=== PATIENT | female | born 1955 | race Caucasian/White ===

== ENCOUNTER 2024-11-03 02:03 | Emergency (ER) | payer MEDICARE, SELFPAY ==
[2024-11-03] VITALS (7 sets, daily range): BP systolic 117–131; BP diastolic 68–83; PULSE 45–50; RESP 16–17; TEMP 36.3; O2SAT 95–100
--- NOTE | ~2024-11-03 | CT_ITS ---
Non-contrast Head CT History: Headache Technique: Axial non-contrast imaging of the brain was performed. Dose reduction technique was used on this scan by utilizing automated exposure control and iterative reconstruction technique. The dose -length product (DLP) was 681.00 mGy-cm. Findings: There is no evidence of intracranial hemorrhage, mass lesion, or acute infarct. Chronic in farct in the left cerebellum noted.. The ventricles and subarachnoid spaces are normal in size. The calvarium appears normal. The visualized paranasal sinuses and mastoid air cells are clear. Impression: No acute abnormality. Chronic left cerebellar infarct. Reviewed, dictated and finalized at [facility]. Impression: No acute abnormality. Chronic left cerebellar infarct.
--- NOTE | 2024-11-03 02:42 | ED.HA ---
HPI - Headache General Chief Complaint: Headache Stated Complaint: unspecified Time Seen by Provider: 11/03/24 02:10 Source: patient Mode of arrival: ambulatory Limitations: no limitations History of Present Illness HPI Narrative: this is a 69-year-old female with a history of previous stroke and Parkinson's disease presents with headache that she has had since 4:00 a.m. in the afternoon has tried [id number] Excedrin with minimal relief there is no neurological deficits patient is concerned about stroke. Patient has no nausea vomiting no blurry vision headache is throbbing left-sided with no chest pain no shortness of breath no fever chills no neck stiffness. MD elicited complaint: headache Onset (ago): hour(s) Onset description: gradually Location: left Severity: moderate Pain scale (0-10): 6 Quality & Timing: throbbing and similar to previous headaches Related Data Allergies Allergy/AdvReac Type Severity Reaction Status Date / Time No Known Allergies Allergy Verified 11/03/24 02:33 Review of Systems Review of Systems: All systems reviewed & are unremarkable except as noted in HPI and below PMFSH Past Medical History Medical History History of CVA (cerebrovascular accident) Parkinsons disease Exam Const: General: healthy appearing, no acute distress and alert Nutritional Appearance: well nourished Orientation/consciousness: patient oriented x3 Limitations: no limitations HENMT: Head: normal to inspection Eyes: Conjunctivae: conjunctivae normal Pupils: Equal, round and reactive pupils present EOM: EOMs intact bilaterally Direct Ophthalmoscopy: no photophobia Neck: Neck: normal visual inspection Chest: Chest palpation & inspection: normal inspection of the chest Resp: Effort & Inspection: normal respiratory effort Auscultation: clear to auscultation bilaterally Cardio: Rate: regular rate Rhythm: regular rhythm GI: GI Palp: Yes Soft to palpation Auscultation: normal bowel sounds : General: Yes bladder normal to palpation Back/Spine/Pelvis: Back: no CVA tenderness Skin: General skin exam: normal color Rashes: no rashes Wounds: no wounds Neuro: General: patient oriented x3, moves all extremities, no meningeal signs, no focal motor deficits and CN's II-XI intact bilaterally Cranial nerves: Yes Nystagmus not present Speech: normal speech Gait exam (Neuro): Normal gait present Extrem: General: normal to inspection and no clubbing, cyanosis or edema Course Course Emergency Course: patient with a left-sided throbbing headache started IV fluids and a dose of 2mg IV morphine blood work performed and reviewed, CT scan of the brain performed shows no acute intracranial abnormality. Vital Signs Vital signs: Vital Signs Temperature 36.3 C L 11/03/24 02:05 Pulse Rate 50 L 11/03/24 02:05 Respiratory Rate 16 11/03/24 02:05 Blood Pressure 131/83 11/03/24 02:05 Pulse Oximetry 100 11/03/24 02:05 Oxygen Delivery Room Air 11/03/24 02:05 Temperature 36.3 C L 11/03/24 02:05 Pulse Rate 50 L 11/03/24 02:05 Respiratory Rate 16 11/03/24 02:05 Blood Pressure 131/83 11/03/24 02:05 Pulse Oximetry 100 11/03/24 02:05 Oxygen Delivery Room Air 11/03/24 02:05 Critical Care Time Critical Care Time Critical Care Time: No Discharge Plan Discharge Clinical Impression: Headache Qualifiers: Headache type: other headache syndrome Qualified Code(s): G44.89 - Other headache syndrome Patient Disposition: Home Condition: Stable Instructions: Antibiotic Form, Acute Headache (ED) Additional Instructions: Advised patient to take medication as prescribed and to follow with her primary within the next 2 to 5 days for further evaluation and treatment. Patient Language: Libyan Follow-up/Referrals: UNKNOWN,DOCTOR [Primary Care Provider] -
--- OUTSIDE RECORDS SUMMARY | 2024-11-03 02:48 | XMS_ITS | Clinical Summary ---
Author Organization [facility] Address [address] [address] Care Team Providers Care Dry Kiln Worker Name Role Phone Bronson Juan MD Unavailable [phone] Mitchell Hooper MD Primary Care Provider [phone] Source Comments [facility],non-owned Affiliates and Associated Physician Practices is amultiple site organization consisting of ambulatory clinics and hospital sitesin [place], [place], [place] and [place]. This disclosure is being madepursuant to the Care Everywhere program and may not contain all information available regarding this patient. Last updated 18.[facility] [facility] Allergies Active Allergy Reactions Criticality Noted Date Comments Adhesive Sensitivity Other Medium 12/08/2021 Tears skin - only wants paper tape Atorvastatin Angioedema High 09/26/2021 Swelling of face, hands and feet Bacitracin Urticaria Medium 06/05/2021 Clarithromycin Nausea and/or Vomiting Low 07/04/2009 Contrast-Iodinated Agents For Ct/Other Nausea and/or Vomiting 12/19/2021 Gramicidin Unknown Low 06/05/2021 Latex Rash Medium 07/04/2009 Levofloxacin Itching Medium 06/05/2021 Neomycin Unknown 12/22/2017 Nickel Urticaria Medium 06/05/2021 Polymyxin B Rash High 06/05/2021 Pramoxine Urticaria Medium 06/05/2021 Rosuvastatin Rash Medium 12/08/2021 Turmeric Urticaria Medium 09/12/2020 Yellow Dye Urticaria Medium 06/05/2021 Medications * Be aware that medications may not be up to date on this document. Alwaysverify current medications with the patient. ALPRAZolam (XANAX) 1 MG tablet Take 1 (one) tablet by mouth 3 times daily as needed for Anxiety Active oxybutynin (DITROPAN) 5 MG tablet Take 1 (one) tablet by mouth once daily Active cyclobenzaprine (FLEXERIL) 10 MG tablet Take 1 (one) tablet by mouth 3 times daily as needed For muscle spasms. 1 Active DULoxetine (CYMBALTA) 60 MG capsule Take 1 (one) capsule by mouth 2 times daily 2 Active hydroxychloroqu ine (PLAQUENIL) 200 MG tablet 1 (one) tablet once daily 2 Active meclizine (ANTIVERT) 25 MG tablet Take 1 (one) tablet by mouth 3 times daily as needed for Dizziness 2 Active montelukast (SINGULAIR) 10 MG tablet TAKE 1 TABLET BY MOUTH IN THE EVENING 1 Active topiramate (TOPAMAX) 100 MG tablet at bedtime 2 Active clopidogrel (PLAVIX) 75 MG tablet Take 1 (one) tablet by mouth once daily 30 tablet 1 2 Active prochlorperazin e (COMPAZINE) 10 MG tablet Take 1 (one) tablet by mouth every 8 hours as needed for Nausea/Vomitin g Active carbidopa-levod opa (Sinemet) 25-100 MG tablet Take 1 (one) tablet by mouth once daily 2 Active folic acid (Folvite) 1 MG tablet Take 1 (one) tablet by mouth once daily 90 tablet 1 2 Active levothyroxine (Synthroid) 100 MCG tablet TAKE 1 TABLET BY MOUTH EVERY DAY 90 tablet 1 2 Active triamcinolone acetonide (Kenalog) 0.1 % cream Apply to affected area 2 times daily 453.6 g 2 Active propranolol ER 24hr (Inderal LA) 60 MG capsule 3 Active dicyclomine (Bentyl) 10 MG capsule Take 1 (one) capsule by mouth 2 times daily as needed 30 capsule 3 Active fluticasone propionate (Flonase) 50 MCG/ACT nasal sprayIndication s:Allergic Rhinitis [place] 2 (two) sprays into each nostril once daily Reasons: Allergic Rhinitis 16 g 2 4 Active cetirizine (ZyrTEC) 10 MG tabletIndicatio ns:Allergic Rhinitis Take 1 (one) tablet by mouth once daily Reasons: Allergic Rhinitis 90 tablet 3 4 Active cholestyramine (Questran) 4 g packet Take 1 (one) packet by mouth 2 times daily 180 packet 3 4 Active Active Problems Problem Noted Date Diagnosed Date Chronic pansinusitis 06/12/2024 Anxiety and depression 06/12/2024 Discoid lupus 06/12/2024 History of MRSA infection of lungs 06/12/2024 Overview (06/12/2024): pneumonia in 2017 Hypertrophy of nasal turbinates 06/12/2024 Nasal septal deviation 06/12/2024 PONV (postoperative nausea and vomiting) 025 Osteoarthritis of right shoulder 06/12/2024 Facial pain, atypical 02/21/2024 Stage 3a chronic kidney disease 09/27/2023 Hypertriglyceridemia 09/27/2023 Mild episode of recurrent major depressive disor mouna 09/27/2023 Eczema 09/27/2023 Grade II hemorrhoids 10/20/2022 Chronic migraine without aur a without status migrainosus, not intractable 08/12/2022 Chronic, continuous use of opioids 05/08/2022 Aortic calcification 01/26/2022 Overview (01/26/2022): Per EKG read by Celso Vick MD on 08/21/2021 Bilateral leg edema 01/13/2022 S/P closure of ileostomy 01/13/2022 Chronic nonintractable headache 12/08/2021 Migraine without status migrainosus, not intract able 12/08/2021 Hypothyroidism 12/08/2021 Mixed hyperlipidemia 12/08/2021 Fibromyalgia 12/08/2021 Sjogren's syndrome 12/08/2021 Anxiety 12/08/2021 Allergic rhinitis 12/08/2021 Restless leg syndrome 12/08/2021 OAB (overactive bladder) 12/08/2021 Vertigo 12/08/2021 Chronic pain syndrome 12/08/2021 Mild anemia 12/08/2021 Fatigue 12/08/2021 History of CVA in adulthood 12/08/2021 History of septic shock 12/08/2021 History of 2019 novel coronavirus disease (COVID -19) 12/08/2021 History of ischemic bowel disease 12/08/2021 S/P colectomy 12/08/2021 Systemic lupus erythematosus 12/08/2021 Abnormal EKG 12/08/2021 Chronic bacterial conjunctivitis of right eye Urticaria 11/27/2020 Dysphagia 10/05/2020 S/P reverse total shoulder arthroplasty, right 0 09/26/2020 Rotator cuff tear arthropathy of right shoulder 07/18/2020 Postmenopausal 07/07/2020 Visit for screening mammogram 07/07/2020 Complete rupture of rotator cuff 06/06/2020 Nasal congestion 06/06/2020 Blepharitis of both eyes 07/12/2019 Current moderate episode of major depressive disorder without prior episode 07/12/2019 Pelvic relaxation due to vaginal prolapse 2018 Screening for breast cancer 12/15/2018 Psoriasis 02/25/2018 Drug-induced constipation 01/17/2018 Cobalamin deficiency 02/12/2017 Multinodular goiter 02/12/2017 Closed fracture of sternum 07/25/2015 Overview (06/12/2024): Closed fracture of sternum with routine healing, unspecified fracture of sternum, subsequent encounter Fibrositis 05/08/2014 Overview (06/12/2024): Fibromyalgia Angioedema 07/19/2013 Overview (06/12/2024): Angioedema Nonrheumatic mitral valve regurgitation 12/29/19 Overview (06/12/2024): Mild MR by 2012 echo Cervical disc disorder with radiculopathy 2012 Overview (06/12/2024): Cervical disc disorder with radiculopathy Osteoarthritis of cervical spine 04/05/2012 Osteoporosis 04/05/2012 Intervertebral disc disorder of cervical region with myelopathy 03/07/2012 Overview (06/12/2024): Intervertebral cervical disc disorder with myelopa Depression, major 07/04/2009 GERD (gastroesophageal reflux disease) 0 Pulmonary emphysema 07/04/2009 Overview (06/12/2024): Obstructive chronic bronchitis with exacerbation Tobacco use disorder 07/04/2009 Ulcer, skin, chronic 07/04/2009 Urinary incontinence 07/04/2009 Resolved Problems Problem Noted Date Diagnosed Date Resolved Date Aortic ectasia 01/26/2022 09/27/2023 Overview (01/26/2022): Per Sathya Land MD on 12/05/2021 Ileus 01/26/2022 03/30/2023 Overview (01/26/2022): Per XR read by radiologist Cr Tineo on 05/25/2021 Syncope 12/08/2021 03/30/2023 Head injury 12/08/2021 03/30/2023 Stage 3b chronic kidney disease 12/08/2021 09/27/2023 Hyperglycemia 12/08/2021 06/12/[address] 12/08/2021 HTN (hypertension) 10/09/2021 2 Elevated troponin 08/20/2021 12/08/2021 CVA (cerebral vascular accident) 08/20/2021 12/08/2021 Cecal volvulus 05/19/2021 01/13/2022 Lactic acidosis 05/19/2021 12/08/2021 Ischemia, bowel 05/19/2021 12/08/2021 Unresponsive 05/19/2021 12/08/2021 ARNOL (acute kidney injury) 05/19/2021 Septic shock 05/19/2021 12/08/2021 Hypotension 05/19/2021 12/08/2021 Encounters Date Type Department Care Team Description 09/06/2024 Refill [facility] - Internal Medicine [address] [place] [address] Mitchell Hooper MD Refill Request 08/31/2024 Patient Outreach [facility] - Care Coordination [address] [place] [phone] Yanet Crowe Outreach Preventive Care 08/30/2024 Patient Outreach [facility] - Care Coordination [address] [place] [phone] Yanet Crowe [facility] Preventive Care from Last 3 Months Immunizations Immunization Administration Dates Next Due INFLUENZA VACCINE, TRIV. (AF LURIA, FLUZONE TRIVALENT; 6MO+) (IIV3) 03/15/2007 Covid Moderna primary monova lent 12+ yr 0.5mL 08/07/2020,08/03/2020 FLU VACCINE QUAD IIV4 SPLIT 0.25 ML IM 02/20/2016 FLU VACCINE TRI IIV3 SPLIT I M (FLUVIRIN) 03/28/2013 HEP A VACCINE, ADULT 11/25/2007,08/05/2005 INFLUENZA VACCINE 02/27/2022,02/19/2021,03/06/20 INFLUENZA VACCINE, HIGH-DOSE , QUADR. (FLUZONE HIGH-DOSE QUADRIVALENT; 65Y+), 0.7 ML (HD-IIV4) 02/17/2024,01/18/2023,02/12/2022,2020 INFLUENZA VACCINE, HIGH-DOSE , TRIV. (FLUZONE HIGH-DOSE TRIVALENT; 65Y+) (HD-IIV3) 02/19/2021 INFLUENZA VACCINE, QUADR. (A FLURIA, FLUZONE QUADRIVALENT; 6MO+) (IIV4) 02/29/2012,03/31/2010 INFLUENZA VACCINE, QUADR. (F LUZONE; FLULAVAL; FLUARIX; AFLURIA QUADRIVALENT; 6MO+), 0.5 ML (IIV4) 01/18/2019,01/17/2018,02/01/2017 INFLUENZA VACCINE, RECOM-DUFF, TRIV. (FLUBLOCK TRIVALENT; 18Y+) (RIV3) 02/05/2015,03/05/2014 PNEUMOCOCCAL PCV20 CONJ VAC IM 01/18/2023 PNEUMOCOCCAL PPSV23 09/01/2016, 5,02/18/2011,2007,03/15/2007,03/03/2000 PNEUMOCOCCAL PPV VACCINE 02/19/2021 Pneumococcal Pcv13 Conj 09/01/2017,02/05/2015 TDAP (7yrs+) 04/23/2015,03/05/2008 Td (Adult), 2 Lf Tetanus Tox oid, Adsorbed, Pf 04/26/2008 Zoster Hzv Vacc Recombinant Inj Im 07/05/2020, Family History Medical History Relation Name Comments CAD (Coronary Artery Disease) Brother 74 CAD (Coronary Artery Disease) Father 71 heart attack age 70 Lupus Father 71 Other Father 71 raynauds diseas e CAD (Coronary Artery Disease) Mother 60 CVA Mother 60 age 60 Cancer - Breast Mother 60 Diabetes; unknown type Mother 60 Cancer Sister 1 63 Brain Cancer - Lung Sister 1 63 Diabetes; unknown type Sister 1 63 Arthritis - Rheumatoid Sister 2 65 CAD (Coronary Artery Disease) Sister 2 65 Cancer Sister 2 65 brain lung Relation Name Status Comments Brother 74 Father 71 Mother 60 Sister 1 63 Sister 2 65 Social History Tobacco Use Types Packs/Day Years Used Date Smoking Tobacco: Former Cigarettes Q uit: 07/25/2012 Smokeless Tobacco: Never Alcohol Use Standard Drinks/Week Comments Not Currently 0 (1 standard drink = 0.6 oz pur e alcohol) rarely AUDIT-C Answer Date Recorded Q1: How often do you have a drink containing alcohol? Never 08/20/2021 Q2: How many drinks containi ng alcohol do you have on a typical day when you are drinking? Patient does not drink Q3: How often do you have si x or more drinks on one occasion? Never 08/20/2021 PHQ-2 Answer Date Recorded Patient Health Questionnaire-2 Score 0 09/27/2023 Hunger Vital Sign Answer Date Recorded Within the past 12 months, y ou worried that your food would run out before you got the money to buy more. Never true 12/23/19 22 Within the past 12 months, t he food you bought just didn't last and you didn't have money to get more. Never true 12/22/2021 Comments Unknown Sex and Gender Information Value Date Recorded Sex Assigned at Female 05/19/2021 11:51 PM MINES SAFETY ENGINEER Legal Sex Female 1:07 PM MINES SAFETY ENGINEER Gender Identity Female 05/19/2021 5:03 PM MINES SAFETY ENGINEER Sexual Orientation Straight 05/19/2021 11 :51 PM MINES SAFETY ENGINEER Occupation Industry Job Start Date Job End Date retired Not on file Not on file Not on file Last Filed Vital Signs Vital Sign Reading Time Taken Comments Blood Pressure 93/62 12/30/2023 1:27 PM CDT Pulse 57 12/30/2023 1:27 PM CDT Temperature 36.3 C (97.3 F) 07/01/2023 1:37 PM MINES SAFETY ENGINEER Respiratory Rate 16 03/27/2022 1:36 PM MINES SAFETY ENGINEER Oxygen Saturation 99% 09/27/2023 11:31 AM CDT Inhaled Oxygen Concentration - - Weight 59.9 kg (132 lb) 12/30/2023 1:27 PM CDT Height 160 cm (5' 3) 12/30/2023 1:27 PM CDT Body Mass Index 23.38 12/30/2023 1:27 PM CDT Plan of Treatment Health Maintenance Due Date Last Done Comments COLOGUARD (AGES 45-75) - COLON CA SCREENING 1954 CT COLONOGRAPHY - COLON CA SCREENING 1954 FIT - COLON CA SCREENING 1955 FLEX SIG - COLON CA SCREENING 1955 Respiratory Syncytial Virus (RSV) Vaccine Pt: or over 60 yrs (1 - Risk 60-74 years 1-dose series) 2014 COVID-19 VACCINE ( - 2023- season) 2023 09/03/2020, 08/07/2020, 08/03/2020 DEPRESSION SCREENING 04/26/2024 09/27/2023, 03/30/2023, 09/26/2021 MEDICARE AWV CALENDAR YEAR 2024 09/27/2023, 03/30/2023, 12/08/2021 INFLUENZA VACCINE (#1) 2024 , 01/18/2023, 02/27/2022, Additional history exists DTAP/TDAP/TD VACCINES (4 - Td or Tdap) 04/23/2025 04/23/2015, 04/26/2008, 03/05/2008 MAMMOGRAM 03/03/2026 03/03/2024, 11/2023, 07/13/2022, Additional history exists COLONOSCOPY - COLON CA SCREENING 09/24/2026 09/24/2021, 09/24/2021 Colorectal Cancer Screening 09/24/2026 LIPID TESTING 09/26/2028 09/27/2023, 08/2022, 12/15/2021, Additional history exists COLON MONITORING 09/25/2031 09/24/2021, 09/24/2021 ZOSTER VACCINE Completed 07/05/2020, 02/29/2020 BONE DENSITY TESTING Completed 08/28/2020 HEPATITIS C SCREENING Completed 12/15/2021 PNEUMOCOCCAL VACCINE 50+ Completed 023, 02/19/2021, 09/01/2017, Additional history exists HEPATITIS B VACCINE Aged Out No longe r eligible based on patient's age to complete this topic HIB VACCINE Aged Out No longer eligi ble based on patient's age to complete this topic HPV VACCINE Aged Out No longer eligi ble based on patient's age to complete this topic MENINGOCOCCAL (Group B) VACCINE SHARED DECISION-MAKING Aged Out No longer eligible based on patient's age to complete this topic MENINGOCOCCAL GROUPS A/C/Y/W VACCINE Aged Out No longer eligible based on patient's age to complete this topic Procedures Procedure Name Priority Date/Time Associated Diagnosis Comments LIPID PROFILE Routine 09/27/2023 12:40 PM CDT Mixed hyperlipidemia HEPATITIS C ANTIBODY W RFLX PCR Routine 12/15/2021 3:11 PM CDT Encounter for hepatitis C screening test for low risk patient COLONOSCOPY Routine 09/24/2021 from Last 3 Months or Most Recently Relevant to Health Maintenance Results * LIPID PROFILE (09/27/2023 12:40 PM CDT) Cholesterol 151 <200 mg/dL [facility] ACCOUNT BILL Triglycerides 140 <150 mg/dL [facility] ACCOUNT BILL HDL Cholesterol 65 >40 mg/dL [facility] ACCOUNT BILL VLDL Calculated 28 <=30 mg/dL [facility] ACCOUNT BILL LDL Calculated 58 <130 mg/dL [facility] ACCOUNT BILL Blood BLOOD SPECIMEN / Unknown 09/27/2023 12:40 PM CDT 09/27/2023 Narrative Resulting Agency Comment Lab Testing performed at: [facility] [address] [id number] Mitchell Hooper MD LAB - CHEMISTRY ORDERABLES Final Result [facility] ACCOUNT BILL [address] [place] [address] * HEPATITIS C ANTIBODY W RFLX PCR (12/15/2021 3:11 PM CDT) [facility] Signature Hepatitis C Antibody <0.1 0.0 - 0.9 s/co ratio [facility] ACCOUNT BILL Blood BLOOD SPECIMEN / Unknown 12/15/2021 3:11 PM CDT 12/15/2021 Narrative Resulting Agency Comment Lab Testing performed at: [facility] [address] [id number] Mitchell Hooper MD LAB - CHEMISTRY ORDERABLES Final Result Performing Organization Address [facility] de Phone Number [facility] ACCOUNT BILL [address] [place] [address] * COLONOSCOPY (09/24/2021) Historical Provider SCANNING ONLY Final Res ult from Last 3 Months or Most Recently Relevant to Health Maintenance Insurance [facility] MANAGED MEDICARE ADV [facility] MANAGED MEDICARE ADV Advance Directives * Full Code (Latest Code Status on File) Date Activated Date Inactivated Comments 12/19/2021 10:43 AM 12/23/2021 11:44 AM * Full Code Date Activated Date Inactivated Comments 08/20/2021 7:08 PM 08/22/2021 6:35 PM * Full Code Date Activated Date Inactivated Comments 05/19/2021 7:29 PM 05/26/2021 12:48 PM Care Teams Dry Kiln Worker Relationship Specialty Start Date End Date Mitchell Hooper MD [address] [place] [phone] PCP - General Internal Medicine 03/30/23 Bronson Juan MD [address] [place] [place] [phone] Surgeon Colon and Rectal Surgery 03/24/22
--- OUTSIDE RECORDS SUMMARY | 2024-11-03 02:48 | XMS_ITS | Encounter Summary ---
Author Organization [facility] Address [address] [place] [address] Care Team Providers Care Records Administrator Name Role Phone Michael Ventura MD Primary Care Provider Vera Omari Restoration DO Unavailable [phone] Michael Carrillo MD Primary Care Provider [phone] Michael Ventura MD Primary Care Provider [phone] Michael Carrillo MD Primary Care Provider [phone] Michael Ventura MD Primary Care Provider [phone] Michael Carrillo MD Primary Care Provider [phone] Alcon Guardado RN Unavailable +[phone] Sabina Meredith MA Unavailable [phone] Michael Carrillo MD Primary Care Provider [phone] Colleen Connolly RN Unavailable +[phone] Encounter Details Date Type Department Care Team (Late st Contact Info) Description 06/20/2020 Telephone [facility] [address] [place] [address] Jyothi Gray, RT Social History Tobacco Use Types Packs/Day Years Used Date Smoking Tobacco: Former Cigarettes 1.5 45 1 968 - 2012 Smokeless Tobacco: Never Alcohol Use Standard Drinks/Week Comments No 0 (1 standard drink = 0.6 oz pur e alcohol) PHQ-2 Answer Date Recorded PHQ-2 Total Score (If total score is 3 or more points, staff should administer the PHQ-9) 1 06/20/2020 Comments No Sex and Gender Information Value Date Recorded Sex Assigned at Not on file Legal Sex Female 10:27 PM LIBRARY CIRCULATION ASSISTANT Gender Identity Female 12/13/2018 8:50 AM CDT Sexual Orientation Straight 12/13/2018 8: 50 AM CDT Occupation Industry Job Start Date Job End Date Retired Not on file Not on file Not on file documented as of this encounter Plan of Treatment Not on file documented as of this encounter Goals Goal Patient Goal Type Associated Problems Recent Progress Patient-Stated? Author CCM Chronic Pain Care Plan Chronic Care Management No Mague Oconnor, RN Note: Problem: Chronic Pain Goals: 1. Minimize further functional decline 2. Maximize quality of life 3. Control pain Strategies: - Activity/exercise program recommendation - Conservative stepwise pain medicine strategy with multi-disciplinary approach - Recommend healthy lifestyle strategies and compensatory methods as needed Reduce the likelihood of falling Lifestyle No Mague Oconnor, RN Note: Below are four things you can do to prevent falls: 1. Begin an exercise program to improve your leg strength & balance 2. Ask your doctor or pharmacist to review your medicines 3. Get annual eye check-ups & update your eyeglasses 4. Make your home safer by: Removing clutter & tripping hazards Putting railings on all stairs & adding grab bars in the bathroom Having good lighting, especially on stairs Contact your local community or senior [place] for information on exercise, fall prevention programs, or options for improving home safety. 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 06/24/2021 4:00 AM LIBRARY CIRCULATION ASSISTANT documented as of this encounter Care Teams Records Administrator Relationship Specialty Start Date End Date Michael Ventura MD PCP - General 07/24/16 01/13/21 Michael Carrillo MD PCP - General Internal Medicine 01/14/21 02/23/21 Michael Ventura MD PCP - General 02/24/21 02/26/21 Michael Carrillo MD PCP - General Internal Medicine 02/27/21 03/24/21 Michael Ventura MD PCP - General 03/25/21 04/06/21 Michael Carrillo MD PCP - General Internal Medicine 04/07/21 10/01/21 Michael Carrillo MD PCP - General Internal Medicine 10/02/21 Omari Vera DO Consulting Physician Orthopedic Surgery 09/12/20 Alcon Guardado RN [address] [place] [address] [address] [place] [address] Convention Services Director 06/02/21 08/07/21 Sabina Meredith MA [address] [place] [address] [address] [place], [place] [phone] ACO Care Cut Roll Machine Offbearer 08/26/21 09/03/21 Colleen Connolly RN [address] [place] [address] [address] [place], [place] [id number] Convention Services Director 12/24/21 01/01/22 documented as of this encounter
--- OUTSIDE RECORDS SUMMARY | 2024-11-03 02:48 | XMS_ITS | Encounter Summary ---
Author Organization [facility] Address [address] [place] [address] Care Team Providers Care Street Inspector Name Role Phone Michael Ventura MD Primary Care Provider [phone] Omari Veraian DO Unavailable [phone] Michael Carrillo MD Primary Care Provider [phone] Michael Ventura MD Primary Care Provider [phone] Michael Carrillo MD Primary Care Provider [phone] Michael Ventura MD Primary Care Provider [phone] Michael Carrillo MD Primary Care Provider [phone] Alcon Guardado RN Unavailable +[phone] Sabina Meredith MA Unavailable [phone] Michael Carrillo MD Primary Care Provider [phone] Colleen Connolly RN Unavailable +[phone] Encounter Details Date Type Department Care Team (Late st Contact Info) Description 08/02/2020 Telephone [facility] [address] [place] [address] Transcribed Order, Provider Social History Tobacco Use Types Packs/Day Years [...] on file Legal 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 06/24/2021 4:00 AM SOIL EXPERT documented as of this encounter Care Teams Street Inspector Relationship Specialty Start Date End Date Michael [...] Physician Orthopedic Surgery 09/12/20 Alcon Guardado RN [address] [place] [address] [address] [place] [address] Drainman 06/02/21 08/07/21 Sabina Meredith MA [address] [facility] [address] [place], [place] [phone] ACO Care Superintendent Distribution 08/26/21 09/03/21 Colleen Connolly RN [address] [place] [address] [address] [place] [address] Drainman 12/24/21 01/01/22 documented as of this encounter
--- OUTSIDE RECORDS SUMMARY | 2024-11-03 02:48 | XMS_ITS | Encounter Summary ---
Author Organization [facility] Address [address] [place] [address] Care Team Providers Care [employer] Librarian Name Role Phone Michael Ventura MD Primary Care Provider Vera Omari [facility] DO Unavailable [phone] Michael Carrillo MD Primary Care Provider [phone] Michael Ventura MD Primary Care Provider [phone] Michael Carrillo MD Primary Care Provider [phone] Michael Ventura MD Primary Care Provider [phone] Michael Carrillo MD Primary Care Provider [phone] Alcon Guardado RN Unavailable [phone] Sabina Meredith MA Unavailable [phone] Michael Carrillo MD Primary Care Provider [phone] Colleen Connolly RN Unavailable [phone] Encounter Details Date Type Department Care Team (Late st Contact Info) Description 08/27/2020 Telephone [facility] [address] [place] [address] [address] [place] [id number] Jyothi Gray, RT Social History Tobacco Use Types Packs/Day Years Used Date Smoking Tobacco: Former Cigarettes 1.5 45 7 968 - 2013 Smokeless Tobacco: Never Alcohol Use Standard Drinks/Week Comments No 0 (1 standard drink = 0.6 oz pur e alcohol) AUDIT-C Answer Date Recorded Q1: How often do you have a drink containing alc ohol? 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 Author CCM Chronic Pain Care Plan Chronic Care Management No Mague Oconnor RN Note: Problem: Chronic Pain Goals: 1. [...] stairs Contact your local community or senior center for information on exercise, fall prevention programs, or options for improving home safety. 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 06/24/2021 4:00 AM TELEGRAPH OFFICE ROUTE AIDE documented as of this encounter Care Teams [employer] Librarian Relationship Specialty Start Date End Date Michael [...] Physician Orthopedic Surgery 09/12/20 Alcon Guardado RN [address] [facility] [address] [place], [place] [phone] Cdl Driver 06/02/21 08/07/21 Sabina Meredith MA [address] [facility] [address] [place], [place] [phone] ACO Care Hand Brush Filler 08/26/21 09/03/21 Colleen Connolly RN [address] [place] [address] [address] [place] [id number] Cdl Driver 12/24/21 01/01/22 documented as of this encounter
--- OUTSIDE RECORDS SUMMARY | 2024-11-03 02:48 | XMS_ITS | Encounter Summary ---
Author Organization [facility] Address [address] [place] [address] Care Team Providers Care Spool Maker Name Role Phone Michael Ventura MD Primary Care Provider [phone] Vera Omari [facility] DO Unavailable [phone] Michael Carrillo MD Primary Care Provider [phone] Michael Ventura MD Primary Care Provider [phone] Michael Carrillo MD Primary Care Provider [phone] Michael Ventura MD Primary Care Provider [phone] Michael Carrillo MD Primary Care Provider [phone] Alcon Guardado RN Unavailable +[phone] Sabina Meredith MA Unavailable [phone] Michael Carrillo MD Primary Care Provider [phone] Colleen Connolly RN Unavailable +[phone] Encounter Details Date Type Department Care Team (Late st Contact Info) Description 07/18/2020 Telephone [facility] [address] [place] [address] [address] [place] [address] Jyothi Gray, RT Social History Tobacco Use Types Packs/Day Years Used Date Smoking Tobacco: Former Cigarettes 1.5 45 8 968 - 2013 Smokeless Tobacco: Never Alcohol [...] on file Legal 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 Female 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 Gender Identity Female 12/13/2018 8:50 AM CDT [...] Time MRSA 08/01/2016 08/29/2020 06/24/2021 4:00 AM FOREST FIRE PREVENTION MANAGER documented as of this encounter Care Teams Spool Maker Relationship Specialty Start Date End Date Michael Ventura MD PCP - General 3/31/17 9/20/21 Michael Carrillo MD PCP - General Internal [...] Physician Orthopedic Surgery 09/12/20 Alcon Guardado RN [address] [place] [address] [address] [place] [address] Manager Real Estate 06/02/21 08/07/21 Sabina Meredith MA [address] [facility] [address] [place], [place] [phone] ACO Care Toolmaker 08/26/21 09/03/21 Colleen Connolly RN [address] [place] [address] [address] [place], [place] [phone] Manager Real Estate 12/24/21 01/01/22 documented as of this encounter
--- OUTSIDE RECORDS SUMMARY | 2024-11-03 02:49 | XMS_ITS | Referral Summary ---
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 Name Role Phone Omari Vera DO Unavailable Michael Carrillo MD Primary Care Provider Encounters Date Type Department Care Team Description 09/27/2024 Orders Only [facility] [address] [place] [address] [address] [place] [address] Michael Carrillo MD 2024 Orders Only [facility] [address] [place] [address] [address] [place] [address] Michael Carrillo MD Night muscle spasms from Last 3 Months Allergies Active Allergy Reactions Criticality Noted Date Comments Adhesive Tape-Silicones Hives Medium Tears skin - only wants paper tape Bacitracin Hives Medium Clarithromycin Nausea And Vomiting Low 07/04/2009 Gramicidin D Unknown Low Iodinated Contrast Media Nausea only Low Latex Rash Medium 07/04/2009 Latex, Natural Rubber Hives Medium 01/18/2018 Levofloxacin Itching Medium Neomycin Blisters High 12/22/2017 Bejnxdzy-Hzhsxcikao-Gbqsg yxin Blisters High 03/16/2022 Nickel Hives Medium Polymyxin B Blisters High Pramoxine Hives Medium Rosuvastatin Rash Medium 12/08/2021 Turmeric Hives Medium 09/12/2020 Yellow Dye Hives Medium Medications oxyCODONE (ROXICODONE) 30 mg immediate release tablet Take 1 tablet (30 mg total) by mouth 4 (four) times a day as needed for pain 03/07/20 21 Active prochlorperazin e (COMPAZINE) 10 mg tablet Take 1 tablet (10 mg total) by mouth every 8 (eight) hours as needed for nausea or vomiting 180 tablet 3 04/28/[address] (CYMBALTA) 60 mg capsule Take 1 capsule (60 mg total) by mouth 2 (two) times a day 180 capsule 3 11/23/19 24 Active hydroxychloroqu ine (PLAQUENIL) 200 mg tablet TAKE 1 TABLET BY MOUTH TWICE DAILY 180 tablet 3 03/22/[address] (PROTONIX) 40 mg EC tablet TAKE 1 TABLET BY MOUTH DAILY 90 tablet 3 04/04/20 24 Active cholestyramine (QUESTRAN) 4 gram packet DISSOLVE & TAKE 1 POWDER BY MOUTH TWICE DAILY Active SSD 1 % cream APPLY CREAM TO AFFECTED AREA TWICE DAILY 03/22/20 24 Active clopidogreL (PLAVIX) 75 mg tablet Take 1 tablet (75 mg total) by mouth daily 100 tablet 1 05/12/19 25 Active folic acid (FOLVITE) 1 mg tabletIndicatio ns:Low folic acid Take 1 tablet (1,000 mcg total) by mouth daily 100 tablet 1 05/26/19 25 Active carbidopa-levod opa (SINEMET) 25-100 mg per tablet Take 1 tablet by mouth once daily 180 tablet 05/26/19 25 Active montelukast (SINGULAIR) 10 mg tabletIndicatio ns:Chronic pansinusitis,Al lergy, subsequent encounter TAKE 1 TABLET BY MOUTH IN THE EVENING 90 tablet 3 06/29/19 25 Active ezetimibe (ZETIA) 10 mg tablet Take 1 tablet by mouth once daily 100 tablet 1 07/08/19 25 Active oxyBUTYnin (DITROPAN) 5 mg tablet TAKE 1 TABLET BY MOUTH TWICE DAILY 180 tablet 3 07/11/19 25 Active propranolol LA (INDERAL LA) 60 mg 24 hr capsuleIndicati ons:Chronic migraine without aura without status migrainosus, not intractable Take 1 capsule by mouth once daily 30 capsule 1 07/25/19 25 Active levothyroxine (SYNTHROID) 50 mcg tablet TAKE 2 TABLETS BY MOUTH ONCE DAILY IN THE MORNING BEFORE BREAKFAST 360 tablet 08/05/19 25 Active cyclobenzaprine (FLEXERIL) 10 mg tabletIndicatio ns:Night muscle spasms Take 1 tablet (10 mg total) by mouth 3 (three) times a day as needed for muscle spasms for muscle spasms 270 tablet 08/26/19 25 Active topiramate (TOPAMAX) 100 mg tabletIndicatio ns:Persistent migraine aura with cerebral infarction and status migrainosus, not intractable (HCC) TAKE 1 TABLET BY MOUTH EVERY NIGHT 100 tablet 09/09/19 25 Active dextroamphetami ne-amphetamine (ADDERALL) 20 mg tablet Take 0.5 tablets (10 mg total) by mouth daily 15 tablet 09/13/19 25 Active ALPRAZolam (XANAX) 1 mg tablet Take 1 tablet (1 mg total) by mouth 3 (three) times a day as needed for anxiety 270 tablet 09/28/19 25 Active triamcinolone (KENALOG) 0.1 % ointmentIndicat ions:Rash APPLY OINTMENT TOPICALLY TO AFFECTED AREA TWICE DAILY NEEDED FOR RASH 454 g 10/15/19 25 Active triamcinolone (KENALOG) 0.1 % ointmentIndicat ions:Rash Apply topically 2 (two) times a day as needed for rash From 07/29/2022 until 08/28/2022 454 g 1 08/23/19 25 025 Discontinued Active Problems Problem Noted Date Diagnosed Date Acute cystitis without hematuria 06/05/2024 Mass of upper inner quadrant of left breast 03/26 Assessment & Plan (04/10/2024 2:39 PM LEG BREAKER): Recommend proceeding with left breast ultrasound. Differential diagnosis hematoma, lipoma, breast cancer. Facial pain, atypical 02/21/2024 Aortic calcification 02/17/2024 Assessment & Plan (02/17/2024 12:31 PM CDT): Continue risk factor modification with control hypertension, ezetimibe H/O colectomy 11/15/2023 Mild episode of recurrent major depressive disor mouna 09/27/2023 Stage 3a chronic kidney disease 09/27/2023 Eczema 09/27/2023 Hypertriglyceridemia 09/27/2023 Grade II hemorrhoids 10/20/2022 Assessment & Plan (10/20/2022 3:17 PM CDT): Recommend hydrocortisone suppositories p.r.n.. Recommend Sitz baths. Amor Self also recommended. Follow-up with colorectal surgeon next month Chronic migraine without aur a without status migrainosus, not intractable 08/12/2022 Assessment & Plan (05/25/2023 2:30 PM LEG BREAKER): Christen has a longstanding headaches and is still reporting a daily headache. Her headache waxes and wanes in severity throughout the day and will usually develop migrainous associated symptoms with her more severe headaches. She has struggled with rebound headaches in the past. Preventatively, the patient currently takes Topamax, duloxetine, and propranolol. She has failed therapy with amitriptyline, nortriptyline, and previous botox injections. Acutely, the patient will take rpfy-uyj-kvlxtie medications which can sometimes help. She notes samples of Nurtec given to her at her last visit worked well. She has used sumatriptan nasal spray in the past, however due to history of stroke and cardiovascular risk factors triptans are contraindicated. Patient's specific migraine risk factors/triggers include family history, disrupted sleep pattern, stress, and depression/anxiety. Plan: Continue Topamax, duloxetine, and propranolol for migraine prevention. Will submit for botox approval. Will try Nurtec and Zavzpret nasal spray for acute headache treatment. Discussed avoidance of hwev-erw-kaisfrf analgesic medications to decrease rebound headaches. Encouraged adequate water intake, regular exercise, well-balanced diet, and limiting caffeine. Will schedule appointment once Botox has been approved. Assessment & Plan (08/12/2022 2:41 PM CDT): Christen is seen today for evaluation of longstanding headaches that have recently increased in frequency. She reports having daily headaches the last 2-3 months. Her headache waxes and wanes in severity throughout the day and can be described as dull/aching or sharp and tight pain with occasional associated symptoms of photophobia, phonophobia, and nausea. Preventatively, the patient tells me she has tried amitriptyline, nortriptyline, and Botox injections at one point. She only completed 3 rounds of Botox injections. For acute headache control, the patient has been taking Excedrin migraine every 6 hours. She historically used sumatriptan nasal spray, however due to history of stroke and cardiovascular risk factors triptans are contraindicated. At today's visit we discussed the patient's specific migraine risk factors/triggers including family history, poor sleep pattern, recent increase in stress, and depression/anxiety. Plan: 1. Headache diary 2. MRI of brain to rule out structural or vascular abnormalities due to recent change in frequency of headaches. 3. Prednisone taper to break current rebound headache pattern. Advised cessation of zycc-emz-cpsqvjf analgesic medication. 3. Preventative: Trial propranolol 60 mg LA daily. Consider retrying nortriptyline, CGRP injectables, or Botox if unsuccessful. 4. Acute therapy: The patient was given samples Nurtec and Ubrelvy at today's visit. She is to contact the office if she wishes to pursue a prescription in either therapy. 5. Limit caffeine intake 6. Encouraged regular exercise and well-balanced diet 7. Encouraged adequate water intake 8. Follow up 6-8 weeks. At today s visit migraine education was performed. We discussed avoidance of migraine triggers and non-medicinal strategies for preventing migraines. Topics of discussion included improved sleep hygiene, healthy diet, and stress reduction techniques. We also discussed the importance of avoiding medication overuse, as this can promote analgesic rebound headache. Chronic, continuous use of opioids 05/08/2022 Assessment & Plan (08/06/2022 12:57 PM CDT): High-dose opioids per pain management Assessment & Plan (05/08/2022 9:27 AM LEG BREAKER): Follows with outside pain management physician who prescribes oxycodone 30 mg Q 4 as well as MSER 15 mg b.i.d. p.r.n.. She reportedly does not take the morphine very frequently but does pick it up from the pharmacy so she has quite a bit at home. I have encouraged her to let her outside physician no she does not take it so that he can stop prescribing it. No changes today to chronic Xanax dosing but for long-term benefit would recommend transitioning to Valium with gradual taper. Additionally recommend seeing a psychiatrist. Yosvany wearing as a reasonable option as previously provided Anemia in stage 3a chronic kidney disease 2021 Assessment & Plan (02/17/2024 12:31 PM CDT): Repeat blood counts to monitor Assessment & Plan (02/11/2023 4:11 PM CDT): Repeat CBC today for monitoring Assessment & Plan (05/08/2022 9:24 AM LEG BREAKER): Likely complicated by some blood loss anemia in the setting of surgery this past fall. Repeat labs in the next few months. Aortic calcification 01/26/2022 Overview (05/31/2024): Per EKG read by Celso Vick MD on 08/21/2021 Bilateral leg edema 01/13/2022 Abnormal EKG 12/08/2021 Anxiety 12/08/2021 Fatigue 12/08/2021 History of 2019 novel coronavirus disease (COVID -19) 12/08/2021 Hyperglycemia 12/08/2021 OAB (overactive bladder) 12/08/2021 Vertigo 12/08/2021 Mild anemia 12/08/2021 S/P colectomy 12/08/2021 Mixed hyperlipidemia 12/08/2021 Chronic nonintractable headache 12/08/2021 Chronic pain syndrome 12/08/2021 Restless leg syndrome 12/08/2021 CKD (chronic kidney disease) stage 3, GFR 30-59 ml/min 10/03/2021 Assessment & Plan (02/17/2024 12:30 PM CDT): Follow-up with Dr. Cohen Assessment & Plan (02/11/2023 4:11 PM CDT): Follow-up with Dr. Cohen Assessment & Plan (05/08/2022 9:24 AM LEG BREAKER): Follow-up with Dr. Cohen with labs in June Chronic bacterial conjunctivitis of right eye Assessment & Plan (12/16/2020 8:20 PM CDT): A referral ophthalmology has been made. Urticaria 11/27/2020 Assessment & Plan (11/27/2020 6:29 PM CDT): Possible allergic reaction to erythromycin ophthalmic ointment. Discontinue ointment. Prednisone taper. Methylprednisolone 40 mg IM today. Thyroid nodule 10/05/2020 Assessment & Plan (10/05/2020 9:09 PM CDT): A thyroid ultrasound will be ordered for further evaluation. Dysphagia 10/05/2020 Assessment & Plan (10/05/2020 9:09 PM CDT): A modified barium swallow be ordered. Patient needs further evaluation. S/P reverse total shoulder arthroplasty, right 0 09/26/2020 Assessment & Plan (06/23/2022 11:41 AM LEG BREAKER): Treatment options were discussed. X-rays taken the office today show no obvious signs of loosening questionable radiolucency along the medial humeral component. The glenoid component appears to be well fixed. I recommended ESR CRP and three-phase bone scan to evaluate for loosening. Clinically her range of motion is well-preserved. Her incision looks excellent and well healed. She will follow up with me once her test results are available. Assessment & Plan (08/07/2021 3:04 PM CDT): Overall patient is doing well. Range of motion continues to improve. She has some days are more painful than others. Clinically her incisions clean dry and intact. She is recovering from emergency abdominal surgery that required a colectomy with ileostomy. She is going to follow up with her general surgeon next month. She did not wish to have ESR and CRP drawn at this time to evaluate for underlying cause of her right shoulder pain. She will message me through [employer] once she has recovered from her abdominal surgery and notify me how her shoulder pain is responding. Assessment & Plan (03/18/2021 3:57 PM LEG BREAKER): X-rays taken the office today compared to previous films performed in November 2020 show no change. There is no evidence of implant loosening or failure. Clinically she has acceptable range of motion. The rest that she was experiencing over the anterior shoulder and chest has completely resolved. Her incisions well healed without erythema. She does have some pain in her arm. I recommended she continue with home-based exercise. She will follow up with me when she is 1 year postoperatively Assessment & Plan (10/24/2020 10:05 AM CDT): Overall patient is doing very well. She is approximately 6 weeks status post right reverse shoulder replacement for rotator cuff tear arthropathy. She would benefit from continued outpatient therapy to improve her active range of motion. She will follow up with me in 6 weeks. X-ray right shoulder at that time. Rotator cuff tear arthropathy of right shoulder 07/18/2020 Assessment & Plan (07/18/2020 12:53 PM CDT): Treatment options were discussed. X-rays were reviewed with the patient which show decreased acromial humeral interval as well as sclerosis consistent with multiple anchors placed into the greater tuberosity. She has weakness and pain with isolation of the supraspinatus. She has function limiting pain that affects her ability to get dressed open a car door and take care of her family. We discussed operative and non operative treatment options including corticosteroid injections and physical therapy. She reports she did not have symptomatic relief with previous cortisone injections and did not wish to have an injection. She elected to proceed with a right reverse shoulder replacement. We discussed the risks of surgery including persistent pain decreased range of motion infection weakness and the need for future surgery. Informed consent was obtained. Visit for screening mammogram 07/07/2020 Assessment & Plan (07/07/2020 5:30 PM CDT): A mammogram was ordered Postmenopausal 07/07/2020 Assessment & Plan (07/07/2020 5:32 PM CDT): A DEXA will be ordered BMI 23.0-23.9, adult 06/06/2020 Assessment & Plan (04/10/2024 2:37 PM LEG BREAKER): BMI Follow-up includes: nutrition counseling, exercise counseling, and education provided. Assessment & Plan (02/17/2024 9:52 AM CDT): BMI Follow-up includes: nutrition counseling, exercise counseling, and education provided. Assessment & Plan (12/30/2023 8:59 AM CDT): BMI Follow-up includes: nutrition counseling, exercise counseling, and education provided. Assessment & Plan (02/11/2023 10:51 AM CDT): BMI Follow-up includes: nutrition counseling, exercise counseling, and education provided. Assessment & Plan (10/20/2022 10:14 AM CDT): BMI Follow-up includes: nutrition counseling, exercise counseling, and education provided. Assessment & Plan (08/06/2022 11:01 AM CDT): BMI Follow-up includes: nutrition counseling, exercise counseling and education provided. Assessment & Plan (05/08/2022 8:54 AM LEG BREAKER): BMI Follow-up includes: nutrition counseling, exercise counseling and education provided. Assessment & Plan (07/01/2021 11:38 AM LEG BREAKER): BMI Follow-up includes: nutrition counseling, exercise counseling and education provided. Assessment & Plan (06/03/2021 2:43 PM LEG BREAKER): BMI Follow-up includes: nutrition counseling, exercise counseling and education provided. Assessment & Plan (11/27/2020 2:06 PM CDT): BMI Follow-up includes: nutrition counseling, exercise counseling and education provided. Assessment & Plan (11/15/2020 12:12 PM CDT): BMI Follow-up includes: nutrition counseling, exercise counseling and education provided. Assessment & Plan (09/20/2020 2:32 PM CDT): BMI Follow-up includes: nutrition counseling, exercise counseling and education provided. Assessment & Plan (06/26/2020 2:59 PM LEG BREAKER): BMI Follow-up includes: nutrition counseling, exercise counseling and education provided. Assessment & Plan (06/06/2020 2:47 PM LEG BREAKER): BMI Follow-up includes: nutrition counseling, exercise counseling and education provided. Nasal congestion 06/06/2020 Assessment & Plan (06/06/2020 5:07 PM LEG BREAKER): Continue fluticasone nasal spray daily. Recommended saline nasal rinses daily Complete rupture of rotator cuff 06/06/2020 Assessment & Plan (06/06/2020 5:07 PM LEG BREAKER): Pain right shoulder with decreased range of motion. MRI right shoulder. She has already been referred to shoulder Orthopedics. Hand eczema 11/27/2019 Assessment & Plan (11/27/2020 6:30 PM CDT): No improvement with triamcinalone. Trial of betamethasone diproprionate. Apply twice daily. Avoid hot water and harsh soaps or detergents. Assessment & Plan (01/04/2020 9:30 AM CDT): Persistent. No vesicles but has excoriated eczema on all the fingers of both hands. Clobetasol ointment x7 days then decrease to triamcinolone BID ointment with occlusion. Refer to Dermatology. Assessment & Plan (11/27/2019 9:45 AM CDT): Seven days of prednisone 40 mg daily. IM methylprednisolone 40 mg today. Increase potency of her topical steroid to fluocinonide. Use twice daily. Step down to triamcinolone 1 rash improves. Apply Aquaphor healing ointment several times during the day as a barrier and emollient. Current moderate episode of major depressive disorder without prior episode 07/12/2019 Assessment & Plan (02/17/2024 12:31 PM CDT): Continue duloxetine present dosage. Hesitant to make changes. Significant life stressors likely to preclude significant improvement from medications alone Assessment & Plan (02/11/2023 4:11 PM CDT): Continue duloxetine present dosage. Hesitant to make changes. Significant life stressors likely to preclude significant improvement from medications alone Assessment & Plan (08/06/2022 12:57 PM CDT): Continue duloxetine Assessment & Plan (06/06/2020 3:30 PM LEG BREAKER): Increased anxiety and depression due to family problems. Requesting an increase in alprazolam which I will discuss with Dr. Ventura. Blepharitis of both eyes 07/12/2019 Assessment & Plan (07/12/2019 12:44 PM CDT): Bilateral. Started 4-5 days ago. No known exposure though pt has hx of seasonal allergies and atopy. No evidence of conjunctivitis. - Baby Shampoo Quintin lid scrubs - Warm compresses QID - Rx for Refresh liquid eye drops Pelvic relaxation due to vaginal prolapse 2018 Myofascial pain dysfunction syndrome 03/29/2019 Assessment & Plan (04/04/2019 3:32 PM LEG BREAKER): Education for soft tissue causing most of pain Consult to PT for dry needling toradol and methylprednisone given in office Screening for breast cancer 12/15/2018 Assessment & Plan (12/15/2018 2:12 PM CDT): We have discussed the importance of mammographies a she is willing to do so in a mammogram was ordered Chronic pain syndrome 12/14/2018 Assessment & Plan (02/17/2024 12:30 PM CDT): On high-dose opioid therapy through pain management. Adjunct with duloxetine. Can not take NSAIDs. No improvement Tylenol. Watch for side effects seen on concurrent benzo use. Assessment & Plan (02/18/2023 8:29 AM CDT): On high-dose opioid therapy through pain management. Adjunct with duloxetine. Can not take NSAIDs. No improvement Tylenol. Watch for side effects seen on concurrent benzo use. Assessment & Plan (09/05/2021 1:34 PM CDT): On high-dose opioid therapy chronically through outside pain management physician. Adjunct w/ duloxetine. Monitor for side effects with high dose and concurrent benzo use. Assessment & Plan (04/24/2019 10:36 AM LEG BREAKER): Patient is following up with pain management and receiving all of her narcotics through them. She still gets her Xanax throughout us and they are aware of this. She is aware of the potential interaction between opioids and benzodiazepines. She has been successful in cutting the Xanax down to 3 tablets a day. Assessment & Plan (12/14/2018 10:23 AM CDT): Pt remains agitated because of the cut backs in pain meds. Psoriasis 02/25/2018 Assessment & Plan (12/15/2018 2:12 PM CDT): Stable. Assessment & Plan (02/25/2018 11:03 AM CDT): Clobetasol cream Derm referral Drug-induced constipation 01/17/2018 Assessment & Plan (01/17/2018 8:37 AM CDT): Increase water hydration, fruits, vegetables walking. use otc miralax nightly hold for diarrhea. report any changes bleeding pain po intolerance if no improvement consult gi If no change will consider rx meds since it is likely opioid induced Viral URI 10/18/2017 Assessment & Plan (04/10/2024 2:39 PM LEG BREAKER): -Discussed supportive measures for most likely viral URI. -Encouraged fluids and rest. -Return to clinic if worsening symptoms, shortness of breath or fevers. -Patient verbalized an understanding of all instructions and plan. Assessment & Plan (02/15/2018 1:11 PM CDT): Drink plenty of fluids. OTC medications include: Ibuprofen 2 to 3 tabs every 6 hours or Tylenol 2 tabs every 4 hours. Sudafed (behind the pharmacy) as directed. Mucinex as directed to thin the secretions. Flonase 1 spray each nostril daily. If your symptoms worsen or you develope a fever > 102, please call the office. Assessment & Plan (10/18/2017 2:19 PM CDT): Drink plenty of fluids. OTC medications include: Ibuprofen 2 to 3 tabs every 6 hours or Tylenol 2 tabs every 4 hours. Sudafed (behind the pharmacy) as directed. Mucinex as directed to thin the secretions. Flonase 1 spray each nostril daily. If your symptoms worsen or you develope a fever > 102, please call the office. Cobalamin deficiency 02/12/2017 Assessment & Plan (01/26/2018 5:17 AM CDT): Reviewed all diagnostics surgery referrals laboratory Answer all questions See orders Multinodular goiter 02/12/2017 Closed fracture of sternum 07/25/2015 Overview (07/31/2016): Closed fracture of sternum with routine healing, unspecified fracture of sternum, subsequent encounter Systemic lupus erythematosus 03/28/2015 Overview (07/31/2016): Lupus (systemic lupus erythematosus) Assessment & Plan (02/17/2024 12:31 PM CDT): Continue follow-up with Dr. Escudero Assessment & Plan (02/11/2023 4:13 PM CDT): Continue follow-up with Dr. Escudero Assessment & Plan (09/05/2021 1:36 PM CDT): Continue with Dr. Escudero Assessment & Plan (01/14/2021 3:09 PM CDT): Continue current regimen, f/u with Dr. Kena Assessment & Plan (01/04/2020 9:32 AM CDT): Plaquenil for DMARD. Symptoms of fatigue and achiness are not well controlled. After School Tutor has suggested Rituxan but she is concerned about taking IV medication. Followed by Rheumatology. Assessment & Plan (09/25/2018 12:43 PM CDT): Therapy was reviewed the patient will follow-up with Rheumatology. She has been relatively stable. Assessment & Plan (06/03/2018 8:57 AM LEG BREAKER): Continue current therapy. Due to see Rheumatology Assessment & Plan (01/26/2018 5:18 AM CDT): Acute flare See orders Needs to control the anxiety to avoid the flares Fu rheumatology Assessment & Plan (11/28/2017 7:07 PM CDT): Patient does have a lot of fatigue and joint symptoms. She will continue follow- up with Rheumatology. Assessment & Plan (10/12/2016 2:21 PM CDT): Continue meds Fu rheumatology Sjogren's syndrome 05/08/2014 Overview (07/31/2016): Sjogrens Assessment & Plan (02/17/2024 12:31 PM CDT): Minimally symptomatic. Artificial tears/saliva p.r.n. Assessment & Plan (07/07/2020 5:31 PM CDT): Patient continues to use artificial saliva although still has trouble with cracking and bleeding in her lips. She does have angular chelitis and was given a prescription today. Assessment & Plan (12/15/2018 2:13 PM CDT): She will continue follow-up with Rheumatology. Assessment & Plan (10/12/2016 2:21 PM CDT): Reviewed all diagnostics surgery referrals laboratory Answer all questions Fu rheumatology / dermatology Fibrositis 05/08/2014 Overview (07/31/2016): Fibromyalgia Angioedema 07/19/2013 Overview (07/29/2016): Angioedema Nonrheumatic mitral valve regurgitation 12/29/19 Overview (01/04/2020): Mild MR by 2012 echo Assessment & Plan (01/04/2020 9:23 AM CDT): Asymptomatic. No palpitations or chest pains. Hyperlipidemia 11/30/2012 Overview (07/29/2016): Hyperlipidemia Assessment & Plan (02/17/2024 12:30 PM CDT): Allergic to statins, continue ezetimibe Assessment & Plan (09/25/2018 12:43 PM CDT): The patient will continue medical therapy. Refills on anticholesterol medicines will be provided for the next year as needed. A heart healthy diet was provided. The patient was instructed report any symptoms such as muscle aches or pains or joint problems they feel could be associated with her medications. Cervical disc disorder with radiculopathy 2012 Overview (07/29/2016): Cervical disc disorder with radiculopathy Assessment & Plan (04/04/2019 3:31 PM LEG BREAKER): Ice not heat , Rest with periods of walking. Prescription sent to pharmacy take as directed. All risk and benefits were discussed with patient. Reviewed prior diagnostics, labs consult prior treatments medications, d/w need for physical therapy and pain management Patient verbalized understanding agrees with plan of care Pulmonary emphysema ([facility]) 06/08/2012 Overview (07/30/2016): Obstructive chronic bronchitis with exacerbation Assessment & Plan (02/17/2024 12:31 PM CDT): No evidence of acute exacerbation. Continue current management Assessment & Plan (05/08/2022 9:24 AM LEG BREAKER): No evidence of acute exacerbation. Continue current management Assessment & Plan (12/16/2020 8:19 PM CDT): Patient will continue inhaler therapy. Assessment & Plan (09/25/2018 12:43 PM CDT): Stable. Continue current therapy. Assessment & Plan (06/03/2018 8:57 AM LEG BREAKER): COPD is improving with treatment. COPD information handout given. Assessment & Plan (04/30/2018 1:52 PM LEG BREAKER): Maintain adequate clear fluid intake. May use [id number] acetaminophen or ibuprofen. Medication instructions were provided to the patient. The risks and benefits of the treatment plan were discussed with the patient. Signs and symptoms of emergency were discussed with the patient. Minimize close contact with other individuals. Prescriptions sent to pharmacy cool mist humidifier ocean spray nasal rest call for no resolution or exacerbation or po intolerance See orders call for no improvement or worse s/s Assessment & Plan (11/28/2017 7:07 PM CDT): COPD is unchanged. Continue current medications. Cervicalgia 04/05/2012 Osteoporosis 04/05/2012 Assessment & Plan (01/14/2021 3:09 PM CDT): Get insurance approval for prolia, check vit D and replete as needed Assessment & Plan (09/25/2018 12:43 PM CDT): I have I have recommended follow-up with Endocrinology Osteoarthritis of cervical spine 04/05/2012 Intervertebral disc disorder of cervical region with myelopathy 03/07/2012 Overview (07/30/2016): Intervertebral cervical disc disorder with myelopa Assessment & Plan (04/04/2019 3:31 PM LEG BREAKER): Ice not heat , Rest with periods of walking. Prescription sent to pharmacy take as directed. All risk and benefits were discussed with patient. Reviewed prior diagnostics, labs consult prior treatments medications, d/w need for physical therapy and pain management Patient verbalized understanding agrees with plan of care Assessment & Plan (11/14/2018 4:36 PM CDT): Pt is upset about the reduction in her pain medication She doesn't want to see Dr Mcclendon any longer wants another pain management doctor Referral was made See order Ice not heat No lifting Use soft collar during difficulty times GERD (gastroesophageal reflux disease) 0 Tobacco use disorder 07/04/2009 Ulcer, skin, chronic 07/04/2009 Depression, major 07/04/2009 Urinary incontinence 07/04/2009 Pulmonary emphysema 07/04/2009 Fibromyalgia 07/04/2009 Hyperlipidemia 07/04/2009 Migraine headache 07/04/2009 Allergic rhinitis 07/04/2009 Sjogren's syndrome 07/04/2009 Systemic lupus erythematosus 07/04/2009 Hypothyroidism 07/04/2009 Thyroid nodule 07/04/2009 Non-seasonal allergic rhinitis due to fungal spo res 05/13/2006 Overview (07/29/2016): ALLERGIC RHINITIS NEC Assessment & Plan (11/27/2019 9:42 AM CDT): Continue Flonase and Singulair And daily OTC antihistamine. She will also be receiving a course of prednisone for her eczema, will see if symptoms improve with oral steroids. Hypothyroidism 05/13/2006 Overview (07/30/2016): HYPOTHYROIDISM NOS Assessment & Plan (02/17/2024 12:31 PM CDT): Repeat TSH Assessment & Plan (08/06/2022 12:57 PM CDT): Repeat TSH Assessment & Plan (09/05/2021 1:36 PM CDT): F/u TSH in a few weeks after dose change. Marked hypothyroidism during hospital stay Assessment & Plan (01/14/2021 3:08 PM CDT): Repeat TSH, continue synthroid Assessment & Plan (07/07/2020 5:31 PM CDT): On replacement continue current therapy a TSH will be obtained Assessment & Plan (11/27/2019 9:46 AM CDT): Clinically euthyroid. Continue current levothyroxine dose. Check TSH today. Assessment & Plan (04/24/2019 10:38 AM LEG BREAKER): Her thyroid has been difficult to adjust. At this time a follow-up TSH will be obtained. Assessment & Plan (04/04/2019 3:31 PM LEG BREAKER): Continue current medical management Education to stop medication can contribute to serious consequences and subsequent health issues Labs pending Call for change vision tremors fatigue malaise dry skin or mood swing Assessment & Plan (12/15/2018 2:13 PM CDT): On replacement check labs Assessment & Plan (09/25/2018 12:42 PM CDT): On replacement a TSH will be obtained. Assessment & Plan (06/03/2018 8:58 AM LEG BREAKER): Check tsh Assessment & Plan (02/25/2018 11:03 AM CDT): Check TSH Continue Levothyroxine Assessment & Plan (01/26/2018 5:17 AM CDT): Continue current medical management Education to stop medication can contribute to serious consequences and subsequent health issues Labs pending Call for change vision tremors fatigue malaise dry skin or mood swing See orders Assessment & Plan (02/01/2017 11:15 AM CDT): This pt best served by seeing endocrine Consult made Labs pending for full thyroid work for continuity of care with endocrine Assessment & Plan (10/12/2016 2:24 PM CDT): Reviewed all diagnostics surgery referrals laboratory Answer all questions Take meds as rx Consider scan thyroid Anxiety and depression Assessment & Plan (02/17/2024 12:30 PM CDT): Little to no improvement with hydroxyzine. Would suggest buspirone trial. Again we had a long discussion regarding increasing Xanax as requested. I am very hesitant to do so given potential for significant drug interactions with high dose opioids that she can currently takes through pain management. Would suggest psychiatry consultation prior to significant changes. Again without life changes to help mitigate extreme stress that she is under on a daily basis further medication increases are of temporary use Assessment & Plan (02/11/2023 4:12 PM CDT): Little to no improvement with hydroxyzine. Would suggest buspirone trial. Again we had a long discussion regarding increasing Xanax as requested. I am very hesitant to do so given potential for significant drug interactions with high dose opioids that she can currently takes through pain management. Would suggest psychiatry consultation prior to significant changes. Again without life changes to help mitigate extreme stress that she is under on a daily basis further medication increases are of temporary use Assessment & Plan (08/06/2022 12:58 PM CDT): Trial of nightly hydroxyzine 50 mg to aid with nighttime anxiety. She is already on a large dose of daily Xanax. Would not increase further. If anything would prefer to very slowly taper given concurrent use of high-dose opioids. Would also recommend Psychiatry consultation in therapy but patient declines at this time. Assessment & Plan (09/05/2021 1:33 PM CDT): Continue current regimens. May benefit from additional SSRI or Buspar. Would not increase Xanax further. Discoid lupus Emphysema of lung Overview (08/29/2020): noted on 08-07-[address] [facility] - patient denies Assessment & Plan (01/14/2021 3:09 PM CDT): Stable, minimal respiratory symptoms. History of smoking Chronic pansinusitis Assessment & Plan (01/14/2021 3:09 PM CDT): Undergoing surgical evaluation for cartilage replacement and opening of nasal passages Assessment & Plan (11/27/2020 5:43 PM CDT): No improvement with montelukast and fluticasone. CT sinuses. Fibromyalgia Assessment & Plan (10/05/2020 9:10 PM CDT): Patient remains weak and painful. She does take opioid pain medication as needed Hypertrophy of nasal turbinates History of MRSA infection of lungs Overview (08/29/2020): pneumonia in 2017 Migraines Assessment & Plan (05/08/2022 9:25 AM LEG BREAKER): Recurrent migraines with likely medication overuse headaches given significant polypharmacy and near daily Excedrin use. Will provide samples of Ubrelvy to take for relief while stopping Excedrin use Restless leg syndrome Overview (08/29/2020): on sinemet Assessment & Plan (09/05/2021 1:36 PM CDT): Continue sinemet. Consider extended release gabapentin if sleep issues worsen Nasal septal deviation PONV (postoperative nausea and vomiting) Osteoarthritis of right shoulder Resolved Problems Problem Noted Date Diagnosed Date Resolved Date Adult BMI <19 kg/sq m 09/05/20212021 Cerebrovascular accident (CV A) due to occlusion of right cerebellar artery 09/05/2021 Assessment & Plan (05/08/2022 9:27 AM LEG BREAKER): Continue statin, aspirin Assessment & Plan (09/05/2021 1:32 PM CDT): Noted on brain MRI during hospitalization. F/u with neurology. Continue Plavix, switch atorva to rosuva at lower dose to hopefully obtain better tolerability. 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 Continue routine follow up with CRS. Sepsis 06/03/2021 06/03/[address] 06/03/2021 Assessment & Plan (09/05/2021 1:35 PM CDT): No issues with appliance. Meeting with surgery team to discuss reversal. Acute bacterial conjunctivitis of both eyes 11/23/2020 10/20/2022 Assessment & Plan (11/27/2020 6:26 PM CDT): Stop erythromycin ointment due to urticaria. Improved, but continues to have mattering of eyes in the morning. Consider where this may be due to chronic sinusitis. Assessment & Plan (11/23/2020 5:47 PM CDT): Patient was originally sent Bleph 10 eyedrops but could not afford them. I switched to to erythromycin ointment based on her allergies. I have advised her to follow-up with Ophthalmology Strain of lumbar paraspinal muscle, initial encounter 01/04/2020 06/06/2020 Assessment & Plan (01/04/2020 9:31 AM CDT): Lumbar back injury from lifting. No red flag symptoms or radicular pain. Ice to back t.i.d.. Gentle lumbar stretching. Cyclobenzaprine 10 mg t.i.d.. Educated on use and side effects. She is also receiving chiropractic treatment. Acute bronchitis due to othe r specified organisms 01/22/2019 11/27/2019 Assessment & Plan (01/22/2019 9:35 PM CDT): Because of the patient's MRSA exposure she is going to be covered with antibiotics. She reports that she spent several days in the hospital caring for her sister. Medicare annual wellness visit, subsequent 12/15/2018 10/20/2022 Assessment & Plan (07/07/2020 5:32 PM CDT): A Medicare Annual Wellness Visit (AWV) was done today as well. The patient filled out a depression screen, functional assessment screen, health risk assessment, and other physicians list. All the elements of this exam were completed as outlined by CMS. Please note that the documentation of this is split between paper documentation and this electronic record. A heart healthy diet was provided. All medications were reviewed and where possible a 90 day prescription was sent to the pharmacy. The patient will follow up for an annual well visit again in 1 year. Assessment & Plan (12/15/2018 2:11 PM CDT): A Medicare Annual Wellness Visit (AWV) was done today as well. The patient filled out a depression screen, functional assessment screen, health risk assessment, and other physicians list. All the elements of this exam were completed as outlined by CMS. Please note that the documentation of this is split between paper documentation and this electronic record. A heart healthy diet was provided. All medications were reviewed and where possible a 90 day prescription was sent to the pharmacy. The patient will follow up for an annual well visit again in 1 year. Injury to thumb (nail), left , initial encounter 11/07/2018 11/27/2019 Assessment & Plan (11/14/2018 4:37 PM CDT): Reviewed all diagnostics surgery referrals laboratory Answer all questions Ice not heat Elevate compression Fu rheumatology Annual physical exam 09/25/2018 023 Assessment & Plan (09/25/2018 12:42 PM CDT): Comprehensive laboratory studies will be obtained. The patient was instructed to follow a prudent diet and exercise program. We have reviewed all medications and where appropriate 90 day refills were given. A heart healthy diet was provided. Need for hepatitis C screening test 09/25/2018 05/08/2022 Assessment & Plan (12/15/2018 2:12 PM CDT): Stable. Check lab Assessment & Plan (09/25/2018 12:42 PM CDT): A hep C screen will be obtained Exposure to strep throat 02/15/201806/2019 Assessment & Plan (02/15/2018 1:09 PM CDT): You are contagious until on the antibiotic for 24 hours. Change out your tooth brush three days after starting the antibiotic. Do not share food or drink. Be sure to take all of your antibiotics. Deviated nasal septum 01/18/20182019 Overview (01/18/2018): Added automatically from request for surgery [id number] Hypertrophy of nasal turbinates 01/18/2018 11/27/2019 Overview (01/18/2018): Added automatically from request for surgery [id number] Nasal valve stenosis 01/18/2018 023 Overview (01/18/2018): Added automatically from request for surgery [id number] Assessment & Plan (12/16/2020 8:20 PM CDT): Patient has had 2 surgeries in still cannot breathe of the left side of her nose. A referral to [facility] has been made Full body hives 09/21/2017 11/27/2019 Assessment & Plan (09/21/2017 2:38 PM CDT): topical medication as prescribed, do not scratch or rub wear protective clothing over the area or a bandaid short term only, call for sob wheezing edema or no resolution Allergic reaction to drug 09/13/2017 Assessment & Plan (09/21/2017 2:38 PM CDT): Reviewed all diagnostics surgery referrals laboratory Answer all questions Soak in oatmeal bath Take coco brk atarax tid Prn singulair supper and ranitidine bedtime Repeat steroid If no improvement call back Assessment & Plan (09/13/2017 4:32 PM CDT): Medrol injection Medrol oral Zantac oral benadryl oral hydroxyzine for itching Thumb pain, right 07/30/2017 09/21/2017 Assessment & Plan (07/30/2017 3:33 PM CDT): Acute onset of thumb pain. Likely sprain vs OA but will check xray to rule out occult fracture. Recommending current pain regimen for her thumb, icing as needed. Acute pain of right shoulder 06/29/2017 11/27/2019 Assessment & Plan (06/29/2017 1:41 PM LEG BREAKER): Xray pending Ice not heat Consider orthopedic Shoulder disorder 06/29/2017 09/21/2017 Assessment & Plan (06/29/2017 1:43 PM LEG BREAKER): Xray Has hx of injury and surgery from [facility] 2013 BMI 25.0-25.9,adult 05/14/2017 11/27/19 20 Assessment & Plan (07/12/2019 11:49 AM CDT): BMI Follow-up includes: nutrition counseling, exercise counseling and education provided. Assessment & Plan (04/24/2019 9:34 AM LEG BREAKER): BMI Follow-up includes: nutrition counseling, exercise counseling and education provided. Assessment & Plan (04/04/2019 3:31 PM LEG BREAKER): BMI Follow-up includes: nutrition counseling, exercise counseling and education provided. Assessment & Plan (12/14/2018 10:02 AM CDT): BMI Follow-up includes: nutrition counseling, exercise counseling and education provided. Assessment & Plan (11/14/2018 4:37 PM CDT): BMI Follow-up includes: nutrition counseling, exercise counseling and education provided. Assessment & Plan (09/07/2018 10:48 AM CDT): BMI Follow-up includes: nutrition counseling, exercise counseling and education provided. Assessment & Plan (06/03/2018 8:40 AM LEG BREAKER): BMI Follow-up includes: nutrition counseling, exercise counseling and education provided. Assessment & Plan (04/15/2018 9:02 AM LEG BREAKER): BMI Follow-up includes: nutrition counseling, exercise counseling and education provided.' Assessment & Plan (02/25/2018 10:27 AM CDT): BMI Follow-up includes: nutrition counseling, exercise counseling and education provided. Assessment & Plan (02/15/2018 1:12 PM CDT): Body mass index is 23.68 kg/m . BMI Follow-up includes: nutrition counseling, exercise counseling and education provided. Assessment & Plan (01/26/2018 5:19 AM CDT): BMI Follow-up includes: nutrition counseling, exercise counseling and education provided. Assessment & Plan (11/24/2017 4:01 PM CDT): BMI Follow-up includes: nutrition counseling, exercise counseling and education provided. Assessment & Plan (10/18/2017 2:18 PM CDT): Body mass index is 23.03 kg/m . BMI Follow-up includes: nutrition counseling, exercise counseling and education provided. Assessment & Plan (09/21/2017 2:39 PM CDT): BMI Follow-up includes: nutrition counseling, exercise counseling and education provided. Assessment & Plan (09/13/2017 4:32 PM CDT): Body mass index is 23.03 kg/m . BMI Follow-up includes: nutrition counseling, exercise counseling and education provided. Assessment & Plan (07/30/2017 2:58 PM CDT): BMI Follow-up includes: nutrition counseling, exercise counseling and education provided. Assessment & Plan (07/06/2017 4:16 PM CDT): BMI Follow-up includes: nutrition counseling, exercise counseling and education provided. Assessment & Plan (05/14/2017 10:55 AM LEG BREAKER): BMI Follow-up includes: nutrition counseling, exercise counseling and education provided. Acute bilateral low back sarah n without sciatica 05/14/2017 09/21/2017 Assessment & Plan (05/14/2017 11:17 AM LEG BREAKER): Encourage rest. Unable to take NSAIDs due to chronic renal insufficiency. Patient may use [id number] Tylenol p.r.n.. Tizanidine prn spasms. Back exercises handout to strengthen core muscles. If no improvement after conservative treatment contact office. Rash and nonspecific skin eruption 05/14/2017 09/21/2017 Assessment & Plan (05/14/2017 11:16 AM LEG BREAKER): Eczema: Triamcinolone ointment. Thyroid activity decreased 02/12/2017 0 11/27/2019 BMI 30.0-30.9,adult 10/08/2016 10/21/19 23 Assessment & Plan (01/14/2021 11:45 AM CDT): BMI Follow-up includes: nutrition counseling, exercise counseling and education provided. Assessment & Plan (01/04/2020 8:32 AM CDT): BMI Follow-up includes: nutrition counseling, exercise counseling and education provided. Assessment & Plan (11/27/2019 9:11 AM CDT): BMI Follow-up includes: nutrition counseling, exercise counseling and education provided. Assessment & Plan (02/01/2017 11:15 AM CDT): BMI Follow-up includes: nutrition counseling, exercise counseling and education provided. Assessment & Plan (10/08/2016 7:40 AM CDT): BMI Follow-up includes: nutrition counseling, exercise counseling and education provided. Pleural effusion 10/08/2016 09/21/2017 Assessment & Plan (10/12/2016 2:23 PM CDT): reveiwed cxray never completely resolved Will repeat cxray at next ov Chronic migraine 05/15/2016 11/27/2019 Overview (07/31/2016): Intractable migraine with aura without status migrainosus Diarrhea 01/09/2016 09/21/2017 Overview (07/31/2016): Diarrhea, unspecified type Gastroenteritis 01/09/2016 09/21/2017 Overview (07/31/2016): Gastroenteritis Urinary urgency 01/09/2016 09/21/2017 Overview (07/31/2016): Urgency of urination Dysuria 01/09/2016 09/21/2017 Overview (07/31/2016): Dysuria Rib pain 07/25/2015 09/21/2017 Overview (07/31/2016): Rib pain on left side Lupus erythematosus 05/08/2014 10/09/19 17 Overview (07/31/2016): Lupus Disorder of thyroid 05/08/2014 09/22/19 18 Overview (07/31/2016): Thyroid disease Chronic pain 12/26/2013 11/27/2019 Degeneration of intervertebr al disc of cervical region 12/26/2013 11/27/2019 Persistent migraine aura wit hout cerebral infarction and without status migrainosus, not intractable 11/07/2013 10/05/2021 Overview (07/31/2016): Migraines Assessment & Plan (10/12/2016 2:24 PM CDT): Headaches are worsening. Advised to keep a headache diary. Counseled regarding lifestyle modifications. Further diagnostic evaluation per orders. Medication changes per orders. ketorlac injection pt was kept additional 15 min for observation She had some relief of her severe s/s Elbow pain 07/24/2013 09/21/2017 Pain in shoulder 07/24/2013 09/21/2017 Bronchitis 01/03/2013 11/27/2019 Overview (07/30/2016): Acute bronchitis Epigastric mass 01/03/2013 10/08/2016 Overview (07/30/2016): Epigastric swelling, mass or lump Depression 12/28/2012 11/27/2019 Overview (07/29/2016): Depression Assessment & Plan (12/15/2018 2:12 PM CDT): Patient does have a problem with major depression and anxiety. We have reviewed and medication and at this time I am reluctant to make changes. We will continue to follow her she denies any suicidal ideation. Shoulder pain 12/28/2012 11/27/2019 Overview (07/30/2016): Shoulder pain, right Assessment & Plan (04/04/2019 3:31 PM LEG BREAKER): Reviewed all diagnostics surgery referrals laboratory Answer all questions Ice compression elevate Fu orthopedic Thyroid nodule 11/30/2012 09/21/2017 Overview (07/30/2016): Thyroid nodule Assessment & Plan (02/01/2017 11:16 AM CDT): Reviewed all diagnostics surgery referrals laboratory Answer all questions Nothing to bx in past Repeat u/s Assessment & Plan (10/12/2016 2:21 PM CDT): Reviewed all diagnostics surgery referrals laboratory Answer all questions Cough 11/30/2012 09/21/2017 Overview (07/30/2016): Cough Back pain 06/08/2012 11/27/2019 Overview (07/30/2016): Backache, unspecified Assessment & Plan (09/25/2018 12:44 PM CDT): Her back pain is debilitating at times. She is using chronic opioids. She understands the need to begin weaning off. She is very reluctant to do so. We have discussed going back to pain management for further management Joint pain 04/05/2012 11/27/2019 Assessment & Plan (01/26/2018 5:18 AM CDT): Reviewed all diagnostics surgery referrals laboratory Answer all questions Fu rheumatology Ice not heat See orders Acquired trigger finger 12/30/201108/25 Chronic sinusitis 05/13/2006 11/27/2019 Overview (07/29/2016): CHRONIC SINUSITIS NOS Assessment & Plan (12/14/2018 10:16 AM CDT): Had surgery but still having a lot of sinus complaints. Has bee using afrin cautioned about addiction Assessment & Plan (11/28/2017 7:07 PM CDT): At this time a CT scan of the sinuses will be obtained. Patient may indeed be referred back to ENT for surgical evaluation. Asthma 05/13/2006 11/27/2019 Overview (07/30/2016): ASTHMA NOS SLE (systemic lupus erythematosus) ([facility]) 09/05/2021 Immunizations Immunization Administration Dates Next Due Hep A, Adult 11/25/2007,08/05/2005 Influenza, Quadrivalent, Hig h Dose, Preservative Free, Intrr 01/18/2023,03/06/2020 Influenza, Quadrivalent, Spl it, Intramuscular 02/20/2016,02/29/2012,03/31/2010 Influenza, Quadrivalent, Spl it, Preservative Free, Intramuscular 01/18/2019,01/17/2018,02/01/2017 Influenza, Split 03/28/2013,02/29/2012, 0 Influenza, Trivalent, High D ose, Split, Preservative Free, Intramuscular 02/17/2024,02/12/2022,02/19/2021 Influenza, Trivalent, IM (MDV) 03/28/2013,2006 Influenza, Trivalent, Recomb inant, Egg Free, Preservative Free, Antibiotic Free, IM (FLUBLOK) 02/05/2015,03/05/2014,03/05/2014 Influenza, Unspecified 02/17/2024,02/27/2022, Moderna SARS-CoV-2 Monovalen t Vaccination (12+ YRS) 09/03/2020,08/03/2020 Pneumococcal Conjugate PCV 13 09/01/2017, 015 Pneumococcal Conjugate Pcv20 01/18/2023 Pneumococcal Polysaccharide PPV23 2020,09/01/2016,02/05/2015,02/18,03/05/2008,03/15/2007,03/03/2000 RSV Vaccine, Pref, Recombina nt, Subunit, Adjuvanted, PF, IM (Arexvy) 02/01/2023 Td, adsorbed 04/26/2008 Tdap 04/23/2015,03/05/2008 ZOSTER Recombinant 07/05/2020,02/29/2020 Social History Tobacco Use Types Packs/Day Years Used Date Smoking Tobacco: Former Cigarettes 1.5 45 1 968 - 2013 Vaping Smokeless Tobacco: Former Alcohol Use Standard Drinks/Week Comments No 0 (1 standard drink = 0.6 oz pur e alcohol) Social Connection and Isolat ion Panel [NHANES] Answer Date Recorded In a typical week, how many times do you talk on the phone with family, friends, or neighbors? More than three times a week 06/10/2021 How often do you get togethe r with friends or relatives? Three times a week 06/10/2021 How often do you attend chur ch or hindu services? 1 to 4 times per year 06/10/2021 Do you belong to any clubs o r organizations such as zoroastrian groups, unions, fraternal or athletic groups, or school groups? No 06/10/2021 How often do you attend meet ings of the clubs or organizations you belong to? Never 06/10/2021 Are you , , di vorced, , never , or living with a partner? 06/10/2021 AUDIT-C Answer Date Recorded Q1: How often do you have a drink containing alc ohol? Monthly or less 06/05/2024 Average Number of Drinks Not on file 025 Q3: How often do you have si x or more drinks on one occasion? Less than monthly 06/05/2024 Overall Financial Resource Strain (CARDIA) Answe r Date Recorded How hard is it for you to pa y for the very basics like food, housing, medical care, and heating? Not very hard 06/10/2021 PHQ-2 Answer Date Recorded PHQ-2 Total Score (If total score is 3 or more points, staff should administer the PHQ-9) 0 04/10/2024 Hunger Vital Sign Answer Date Recorded Within the past 12 months, y ou worried that your food would run out before you got the money to buy more. Never true 06/10/19 22 Within the past 12 months, t he food you bought just didn't last and you didn't have money to get more. Never true 06/10/2021 PRAPARE - Transportation Answer Date Re corded In the past 12 months, has l ack of transportation kept you from medical appointments or from getting medications? No 05/27 In the past 12 months, has l ack of transportation kept you from meetings, work, or from getting things needed for daily living? No 06/10/2021 Housing Stability Vital Sign Answer Taz e Recorded In the last 12 months, was t here a time when you were not able to pay the mortgage or rent on time? No 06/10/2021 In the last 12 months, how many places have you lived? 1 06/10/2021 In the last 12 months, was t here a time when you did not have a steady place to sleep or slept in a fdc (including now)? No 06/10/2021 Comments No Sex and Gender Information Value Date Recorded Sex Assigned at Not on file Legal Sex Female 10:27 PM LEG BREAKER Gender Identity Female 12/13/2018 8:50 AM CDT Sexual Orientation Straight 12/13/2018 8: 50 AM CDT Occupation Industry Job Start Date Job End Date Retired Not on file Not on file Not on file Last Filed Vital Signs Vital Sign Reading Time Taken Comments Blood Pressure 100/71 06/05/2024 10:45 AM LEG BREAKER Pulse 75 06/05/2024 10:45 AM LEG BREAKER Temperature 36.7 C (98.1 F) 06/05/2024 10:45 AM LEG BREAKER Respiratory Rate 16 05/24/2023 4:03 PM LEG BREAKER Oxygen Saturation 98% 04/10/2024 1:59 PM LEG BREAKER Inhaled Oxygen Concentration - - Weight 61 kg (134 lb 6.4 oz) 06/05/2024 10:45 AM LEG BREAKER Height 161.3 cm (5' 3.5) 06/05/2024 10:45 AM CS T Body Mass Index 23.43 06/05/2024 10:45 AM LEG BREAKER Plan of Treatment Not on file Goals Goal Patient Goal Type Associated Problems Recent Progress Patient-Stated? Author VISHAL General Goal - Patient is knowledgeable about condition when worsening and how to respond ACO Care Management On track(2021 11:22 AM CDT) No Alcon Guardado, RN Note: Problem: Knowledge deficit related to signs and symptoms of worsening condition Interventions: - Assess patient's level of understanding related to their condition(s), specific medications and self-management of their chronic conditions. - Send educational materials to patient related to their chronic condition, including signs and symptoms, self-management actions, and serious symptoms that require urgent medical intervention. - Assist patient/provider in developing an action plan for symptom management. - Review with patient weekly: s/s worsening condition, self-management actions to take, when to call CM or provider. CCM Chronic Pain Care Plan Chronic Care Management No Mague Oconnor RN Note: Problem: Chronic Pain Goals: 1. Minimize further functional decline 2. Maximize quality of life 3. Control pain Strategies: - Activity/exercise program recommendation - Conservative stepwise pain medicine strategy with multi-disciplinary approach - Recommend healthy lifestyle strategies and compensatory methods as needed Reduce the likelihood of falling Lifestyle No Mague Oconnor, MANDEEP Note: Below are four things you can [...] programs, or options for improving home safety. Medical Devices Implanted Type Area Project Development Engineer Device Identifier Shelf Expiration Date Model / Serial / Lot Implantech 23-700-40 Alliedsil 3x2in Nonreinforced Permanent Implantable Thk.04in - [id number] Implanted:Qty: 1 on 03/25/2021 by Tristan Solorio MD at [facility] Other - see comments N/A: Nose Implantech 09/11/2025- / / [id number] Implantech Alliedsil 3x2in 1 Short Term Implantable Thk.03in Sheeting - [id number] Implanted:Qty: 1 on 01/28/2018 by Yohan Maldonado MD at [facility] Bilateral : Nose Implantech [id number] 07/22/2022 / / [id number] Intersect Ent [id number] Propel 4mm 16mm Steroid Release Zip Tie 370 Mcg Mini Implant - [id number] Implanted:Qty: 1 on 01/28/2018 by Yohan Maldonado MD at [facility] Left: Nose Intersect Ent 07/03/2019 [id number] / / [id number] Intersect Ent [id number] Propel 4mm 16mm Steroid Release Zip Tie 370 Mcg Mini Implant - [id number] Implanted:Qty: 1 on 01/28/2018 by Yohan Maldonado MD at [facility] Right: Nose Intersect Ent 07/03/2019 [id number] / / [id number] [place] [place] Implanted:Qty: 1 on 01/28/2018 by Yohan Maldonado MD at [facility] Bilateral : Nose Spirom[employer]s Medical Equipment 10/12/2018 / [id number] Description:Item documented as one time implant on implant screen by RN. Item listed in EPIC under supply screen, so dialysis rn entered on supply screen for charging, and left implant screen items as non-chargeable [employer] Dwx2pl Stem Perform Sz 2 Plus Humeral Long - [id number] - [id number] Implanted:Qty: 1 on 09/11/2020 by Omari Vera DO at [facility] Right: Shoulder [employer]ou [employer] Inc [id number] 05/23/2025 [id number] / [id number] / Perform Humeral System Retentive Reversed Insert Implanted:Qty: 1 on 09/11/2020 by Omari Vera DO at [facility] Right: Shoulder Tornier Inc 01/17/2025 [id number] / [id number] / Description:Size 1/2 Diameter 36mm Thickness +0mm REF [id number] Ciashop[employer] Inc [id number] Aequalis 2.5mm 200mm Shoulder Glenoid Pin Alignment Sterile - [id number] - [id number] Implanted:Qty: 1 on 09/11/2020 by Omari Vera DO at [facility] Right: Shoulder Smarter P[employer] Inc [id number] 05/09/2025 [id number] / [id number] / Description:REF: [id number] Tornier Inc [id number] Aequalis 25mm Shoulder Baseplate Glenoid Lewis - [id number] - [id number] Implanted:Qty: 1 on 09/11/2020 by Omari Vera DO at [facility] Right: Shoulder Stupeflix Technology Inc [id number] 04/21/2023 [id number] / [id number] / Sm[employer] [id number] 36mm Reverse Ii Center Shoulder Sphere Glenoid Titanium - [id number] - [id number] Implanted:Qty: 1 on 09/11/2020 by Omari Vera DO at [facility] Right: Shoulder [employer] Inc [id number] 08/14/2025 [id number] / [id number] / Tornier Inc [id number] Aequalis Reversed 4.5mm 18mm Compression Glenoid Screw Baseplate - [id number] Implanted:Qty: 2 on 09/11/2020 by Omari Vera DO at [facility] Right: Shoulder Stupeflix [employer] Inc [id number] / / Tornier Inc [id number] Aequalis 4.5mm 23mm Lock Multidirectional Self Tap Shoulder Screw Latex Free - [id number] Implanted:Qty: 2 on 09/11/2020 by Omari Vera DO at [facility] Right: Shoulder [employer] [id number] / / P[employer] 7210 Medpor 50x38x.85mm Sheet Smooth Transition Craniomaxillofacial Latex Free - [id number] Implanted:Qty: 1 on 03/25/2021 by Tristan Solorio MD at [facility] N/A: Nose [employer]x [employer] Inc 08/11/2030 7210 / / [id number] Explanted Type Area Project Development Engineer Device Identifier Shelf Expiration Date Model / Serial / Lot [employer] [id number] Guide Pin Perform 3.0 X 100mm - [id number] Explanted:Qty: 1 on 09/11/2020 at [facility] [employer] [id number] / / Description:: Item documente d as one time supply on supply screen by RN. Item listed in EPIC under implant screen, so dialysis rn entered on implant screen as implanted/explanted for charging, and left supply screen items as non-chargeable Procedures Procedure Name Priority Date/Time Associated Diagnosis Comments SCREENING MAMMOGRAM BILATERAL W ENRIQUE Schedule Routine, Read Routine (OP Routine) 03/03/2024 2:27 PM LEG BREAKER Screening mammogram, encounter for COLONOSCOPY Routine 09/24/2021 DEXA AXIAL SKELETON BONE DENSITY 1 OR MORE SITES Schedule Routine, Read Routine (OP Routine) 08/28/2020 1:04 PM CDT Postmenopausal HEPATITIS C ANTIBODY Routine 09/07/2018 11:32 AM CDT Need for hepatitis C screening test from Last 3 Months or Most Recently Relevant to Health Maintenance Results * Screening Mammogram Bilateral W Enrique (03/03/2024 2:27 PM LEG BREAKER) Anatomical Region Laterality Modality Breast Bilateral Mammography Narrative 03/06/2024 2:52 PM LEG BREAKER Mammogram Technique: Bilateral Digital Breast Tomosynthesis, Bilateral C-view 2D Screening mammogram. Views obtained: bilateral craniocaudal and bilateral mediolateral oblique. Computer Aided Detection was performed. Mammogram Findings: The present examination has been compared to prior imaging studies performed at [facility] on 12/14/2018, 08/28/2020 and 07/13/2022. The breasts are heterogeneously dense, which may obscure small masses. There is no suspicious abnormality in either breast. Impression: There is no mammographic evidence of malignancy. Annual screening mammography is recommended. If supplemental screening is desired, breast MRI would be recommended in this patient with heterogeneously dense breasts. OVERALL FINAL ASSESSMENT: BI-RADS CATEGORY 1: Negative. Procedure Note Patricia Fan MD - 03/06/2024 Mammogram Technique: Bilateral Digital Breast Tomosynthesis, Bilateral C-view 2D Screening mammogram. Views obtained: bilateral craniocaudal and bilateral mediolateral oblique. Computer Aided Detection was performed. Mammogram Findings: The present examination has been compared to prior imaging studies performed at [facility] on 12/14/2018,08/28/2020 and 07/13/2022. The breasts are heterogeneously dense, which may obscure small masses. There is no suspicious abnormality in either breast. Impression: There is no mammographic evidence of malignancy. Annual screening mammography is recommended. If supplemental screeningis desired, breast MRI would be recommended in this patient with heterogeneously dense breasts. OVERALL FINAL ASSESSMENT: BI-RADS CATEGORY 1: Negative. us Self Screening Mammogram IMG MAMMO PROCEDURES Fi nal Result * Colonoscopy (09/24/2021) Anatomical Region Laterality Modality Other Impressions 09/24/2021 Non bleeding internal hemorrhoids. Diverticulosis in the sigmoid colon. The examination was otherwise normal. Repeat in 5 years. us Historical Provider ENDOSCOPY PROCEDURES Paula l Result * Dexa Axial Skeleton Bone Density 1 or 2 Site (08/28/2020 1:04 PM CDT) Anatomical Region Laterality Modality Body N/A Digital Radiogra phy 08/28/2020 1:08 PM CDT Impressions 08/28/2020 1:53 PM CDT 1. The bone mineral density of the lumbar spine is moderately decreased. 2. The bone mineral density of the left femoral neck is mildly decreased. 3. The bone mineral density of the left total hip is moderately decreased. 4. Overall, the above findings are diagnostic of osteoporosis by WHO criteria. 5. Based on the FRAX fracture risk model, the 10-year probability for major osteoporotic fracture is 21% and that for hip fracture is 3.6%. This 10-year fracture risk estimate was calculated using the risk factors noted in the history above, along with the femoral neck bone density. FRAX is intended to help guide treatment decisions in men over age 50 and postmenopausal women with low bone mass (osteopenia). The National Osteoporosis Foundation (NOF) recommends that FDA-approved medical therapies be considered in postmenopausal women and men age 50 years and older with osteoporosis and those with low bone mass whose 10-year fracture probability by FRAX is >= 20% for major osteoporotic fracture or >= 3% for hip fracture. However, all treatment decisions require clinical judgment and consideration of individual patient factors, including patient preferences, comorbidities, previous drug use, risk factors not captured in the FRAX model (e.g., frailty, falls, vitamin D deficiency, increased bone turnover, interval significant decline in bone density) and possible under- or over-estimation of fracture risk by FRAX. General comments regarding interpretation of bone mineral density measurements: A) In children, premenopausal woman and males under age 50 not at increased risk for fractures only Z-scores, not T-scores are used to indicate risk. A Z-score above -2.0 is defined as within the expected range for age and Z-score at or less than -2.0 is below the expected range for age. A Z-score below the expected range for age in a patient with recent fractures and/or chronic corticosteroid treatment is consistent with a diagnosis of osteoporosis. B) In post menopausal women and males over 50, comparison of the measured bone mineral density with the average value in young normal subjects (the T-score) has been found to be useful in assessing fracture risk. Fracture risk approximately doubles for each 1.0 standard deviation (SD) in individual's hip or spine bone mineral density is below the average value of young normal subjects. The World Health Organization (WHO) has defined T-scores of -1.0 to -2.5 as diagnostic of low bone mass (OSTEOPENIA), and T-scores of -2.5 or lower to be diagnostic of OSTEOPOROSIS, based on the site of lowest bone density. Note that there will be a change in reporting format and reference databases as patients move from the younger population (group A) to the older population (group B) The National Osteoporosis Foundation (www.nof.org) recommends adequate intake of calcium and vitamin D and regular weight-bearing exercise in all patients. They recommend pharmacologic treatment in postmenopausal women and men age 50 and older presenting with any of the followin) Osteoporosis, after appropriate evaluation to exclude secondary causes. 2) A hip or vertebral (clinical or radiographic) fracture, regardless of the bone density. 3) Low bone mass (Osteopenia) and one or more of: other prior fractures, secondary causes associated with high risk of fracture (such as glucocorticoid use or total immobilization), or computed high risk of fracture (10-yr probability of hip fracture >= 3% or a 10-yr probability of any major osteoporosis-related fracture >= 20% based on the [place].-adapted WHO algorithm), available at http://www.shef.ac.uk/FRAX). Dictated by: Naga Abreu M.D. The radiology attending physician has personally reviewed this study, and had reviewed and/or edited this written report and agrees with it. Electronically signed by: Clayton Stark M.D. Narrative 08/28/2020 1:53 PM CDT BONE DENSITOMETRY OF THE SPINE AND HIP DATE OF STUDY: 08/28/2020 HISTORY: 65-year-old postmenopausal woman with hysterectomy and removal of ovaries at age 45 with history of smoking and rheumatoid arthritis. She is being treated with calcium and vitamin D. Prior fractures of sternum and sacrum. Evaluate bone mineral density. FINDINGS (SPINE): The bone mineral density of L2, L3, L4 was assessed by dual-energy x-ray absorptiometry. The average bone mineral density within this region is 0.722 gm/sq-cm. This is 1.4 standard deviations below the mean of the average bone mineral density for age- and gender-matched subjects (the Z-score). It is 3.2 standard deviations below the mean peak bone mineral density in young adults (the T-score). L1 was excluded from analysis because of degenerative changes. FINDINGS (FEMORAL NECK): The bone mineral density of the left femoral neck was assessed by dual-energy x-ray absorptiometry. The average bone mineral density within the femoral neck region is 0.63 gm/sq-cm. This is 0.4 standard deviations below the mean of the average bone mineral density for age- and gender-matched subjects (the Z-score). It is 2.0 standard deviations below the mean peak bone mineral density in young adults (the T-score). FINDINGS (TOTAL HIP): The bone mineral density of the left hip was assessed by dual-energy x-ray absorptiometry. The average bone mineral density within the total hip region is 0.629 gm/sq-cm. This is 1.3 standard deviations below the mean of the average bone mineral density for age- and gender-matched subjects (the Z-score). It is 2.6 standard deviations below the mean peak bone mineral density in young adults (the T-score). SUMMARY OF CURRENT RESULTS: Region Exam Date BMD T-Score Z-Score AP Spine (L2, L3, L4) 08/28/2020 0.722 -3.2 -1.4 Femoral Neck (Left) 08/28/2020 0.630 -2.0 -0.4 Total Hip (Left) 08/28/2020 0.629 -2.6 -1.3 Procedure Note Clayton Stark MD - 08/28/2020 BONE DENSITOMETRY OF THE SPINE AND HIP DATE OF STUDY: 08/28/2020 HISTORY: 65-year-old postmenopausal woman with hysterectomy and removal of ovaries at age 45 with history of smoking and rheumatoid arthritis. She is being treated with calcium and vitamin D. Prior fractures of sternum and sacrum. Evaluate bone mineral density. FINDINGS (SPINE): The bone mineral density of L2, L3, L4 was assessed by dual-energy x-ray absorptiometry. The average bone mineral density within this region is 0.722 gm/sq-cm. This is 1.4 standard deviations below the mean of the average bone mineral density for age- and gender-matched subjects (the Z-score). It is 3.2 standard deviations below the mean peak bone mineral density in young adults (the T-score). L1 was excluded from analysis because of degenerative changes. FINDINGS (FEMORAL NECK): The bone mineral density of the left femoral neck was assessed by dual-energy x-ray absorptiometry. The average bone mineral density within the femoral neck region is 0.63 gm/sq-cm. This is 0.4 standard deviations below the mean of the average bone mineral density for age- and gender-matched subjects (the Z-score). It is 2.0 standard deviations below the mean peak bone mineral density in young adults (the T-score). FINDINGS (TOTAL HIP): The bone mineral density of the left hip was assessed by dual-energy x-ray absorptiometry. The average bone mineral density within the total hip region is 0.629 gm/sq-cm. This is 1.3 standard deviations below the mean of the average bone mineral density for age- and gender-matched subjects (the Z-score). It is 2.6 standard deviations below the mean peak bone mineral density in young adults (the T-score). SUMMARY OF CURRENT RESULTS: Region Exam Date BMD T-Score Z-Score AP Spine (L2, L3, L4) 08/28/2020 0.722 -3.2 -1.4 Femoral Neck (Left) 08/28/2020 0.630 -2.0 -0.4 Total Hip (Left) 08/28/2020 0.629 -2.6 -1.3 IMPRESSION: 1. The bone mineral density of the lumbar spine is moderately decreased. 2. The bone mineral density of the left femoral neck is mildly decreased. 3. The bone mineral density of the left total hip is moderately decreased. 4. Overall, the above findings are diagnostic of osteoporosis by WHO criteria. 5. Based on the FRAX fracture risk model, the 10-year probability for major osteoporotic fracture is 21% and that for hip fracture is 3.6%. This 10-year fracture risk estimate was calculated using the risk factors noted in the history above, along with the femoral neck bone density. FRAX is intended to help guide treatment decisions in men over age 50 and postmenopausal women with low bone mass (osteopenia). The National Osteoporosis Foundation (NOF) recommends that FDA-approved medical therapies be considered in postmenopausal women and men age 50 years and older with osteoporosis and those with low bone mass whose 10-year fracture probability by FRAX is >= 20% for major osteoporotic fracture or >= 3% for hip fracture. However, all treatment decisions require clinical judgment and consideration of individual patient factors, including patient preferences, comorbidities, previous drug use, risk factors not captured in the FRAX model (e.g., frailty, falls, vitamin D deficiency, increased bone turnover, interval significant decline in bone density) and possible under- or over-estimation of fracture risk by FRAX. General comments regarding interpretation of bone mineral density measurements: A) In children, premenopausal woman and males under age 50 not at increased risk for fractures only Z-scores, not T-scores are used to indicate risk. A Z-score above -2.0 is defined as within the expected range for age and Z-score at or less than -2.0 is below the expected range for age. A Z-score below the expected range for age in a patient with recent fractures and/or chronic corticosteroid treatment is consistent with a diagnosis of osteoporosis. B) In post menopausal women and males over 50, comparison of the measured bone mineral density with the average value in young normal subjects (the T-score) has been found to be useful in assessing fracture risk. Fracture risk approximately doubles for each 1.0 standard deviation (SD) in individual's hip or spine bone mineral density is below the average value of young normal subjects. The World Health Organization (WHO) has defined T-scores of -1.0 to -2.5 as diagnostic of low bone mass (OSTEOPENIA), and T-scores of -2.5 or lower to be diagnostic of OSTEOPOROSIS, based on the site of lowest bone density. Note that there will be a change in reporting format and reference databases as patients move from the younger population (group A) to the older population (group B) The National Osteoporosis Foundation (www.nof.org) recommends adequate intake of calcium and vitamin D and regular weight-bearing exercise in all patients. They recommend pharmacologic treatment in postmenopausal women and men age 50 and older presenting with any of the followin) Osteoporosis, after appropriate evaluation to exclude secondary causes. 2) A hip or vertebral (clinical or radiographic) fracture, regardless of the bone density. 3) Low bone mass (Osteopenia) and one or more of: other prior fractures, secondary causes associated with high risk of fracture (such as glucocorticoid use or total immobilization), or computed high risk of fracture (10-yr probability of hip fracture >= 3% or a 10-yr probability of any major osteoporosis-related fracture >= 20% based on the [place].-adapted WHO algorithm), available at http://www.shef.ac.uk/FRAX). Dictated by: Naga Abreu M.D. The radiology attending physician has personally reviewed this study, and had reviewed and/or edited this written report and agrees with it. Electronically signed by: Clayton Stark M.D. Michael Ventura MD [facility] DXA PROCEDURES Final Resul t * Hepatitis C antibody (09/07/2018 11:32 AM CDT) Hep C Ab NON-REACT HORTENCIA NON-REACT HORTENCIA [facility] [place] SIGNAL TO CUT-OFF 0.04 <1.00 [facility] [place] Comment: HCV antibody was non-reactive. There is no laboratory evidence of HCV infection. In most cases, no further action is required. However, if recent HCV exposure is suspected, a test for HCV RNA (test code 52990) is suggested. For additional information please refer to http://education.Lyks.Wildfire/faq/SYQ23u5 (This link is being provided for informational/ educational purposes only.) Blood specimen (specimen) 09/07/2018 11:32 AM CDT 09/08/2018 5:44 AM CDT Narrative Resulting Agency Comment Performing Organization Information: Site ID: [id number] Name: Cyndy Baez Address: [address] [address] Director: Yosvany Lindsay D.O., MPH Michael Ventura MD LAB MICROBIOLOGY - GENERAL ORD ERABLES Final Result Performing Organization Address City/State/[facility] Co de Phone Number CYNDY VARGHESE - [facility] [address] from Last 3 Months or Most Recently Relevant to Health Maintenance Insurance [facility] MEDICARE [facility]VANT[facility] Address: [address] [address] [place] [address] [facility] MEDICARE ADVANT[facility] Address: [address] [address] [place] [address] [facility] MEDICARE ADVANTAGE [facility] Address: [address] [address] [place] [address] Advance Directives For more information, please contact: [phone] * Full Code (Latest Code Status on File) Date Activated Date Inactivated Comments 09/11/2020 4:46 PM 09/13/2020 4:56 PM * Full Code Date Activated Date Inactivated Comments 01/28/2018 11:49 AM 01/28/2018 2:35 PM Care Teams Crusher And Blender Operator Relationship Specialty Start Date End Date Michael Carrillo MD PCP - General Internal Medicine 10/02/21 Omari Vera DO Consulting Physician Orthopedic Surgery 09/12/20
--- OUTSIDE RECORDS SUMMARY | 2024-11-03 02:49 | XMS_ITS | Clinical Summary ---
Author Organization [facility] Address [address] [address] Care Team Providers Care Agronomy Internship Name Role Phone Omari Vera DO Unavailable [phone] Michael Carrillo MD Primary Care Provider Allergies Active Allergy Reactions Criticality Noted Date Comments Adhesive Tape-Silicones Hives Medium Tears skin - only wants paper tape Bacitracin Hives Medium Clarithromycin Nausea And Vomiting Low 07/04/2009 Gramicidin D Unknown Low Iodinated Contrast Media Nausea only Low Latex Rash Medium 07/04/2009 Latex, Natural Rubber Hives Medium 01/18/2018 Levofloxacin Itching Medium Neomycin Blisters High 12/22/2017 Uufvqjwa-Yaujdzxwej-Vtzel yxin Blisters High 03/16/2022 Nickel Hives Medium [...] 03/26 Assessment & Plan (04/10/2024 2:39 PM FREIGHT DISPATCHER): Recommend proceeding with left breast ultrasound. Differential [...] 08/12/2022 Assessment & Plan (05/25/2023 2:30 PM FREIGHT DISPATCHER): Christen has a longstanding headaches and is [...] botox injections. Acutely, the patient will take yzeg-wxn-qqtgucp medications which can sometimes help. She notes [...] for acute headache treatment. Discussed avoidance of myoc-jwd-dmcxehz analgesic medications to decrease rebound headaches. Encouraged [...] current rebound headache pattern. Advised cessation of gmxj-brq-odozqwx analgesic medication. 3. Preventative: Trial propranolol 60 [...] management Assessment & Plan (05/08/2022 9:27 AM FREIGHT DISPATCHER): Follows with outside pain management physician who [...] monitoring Assessment & Plan (05/08/2022 9:24 AM FREIGHT DISPATCHER): Likely complicated by some blood loss anemia [...] Cohen Assessment & Plan (05/08/2022 9:24 AM FREIGHT DISPATCHER): Follow-up with Dr. Cohen with labs in [...] 09/26/2020 Assessment & Plan (06/23/2022 11:41 AM FREIGHT DISPATCHER): Treatment options were discussed. X-rays taken the [...] shoulder pain. She will message me through [employer] once she has recovered from her abdominal surgery and notify me how her shoulder pain is responding. Assessment & Plan (03/18/2021 3:57 PM FREIGHT DISPATCHER): X-rays taken the office today compared to [...] 06/06/2020 Assessment & Plan (04/10/2024 2:37 PM FREIGHT DISPATCHER): BMI Follow-up includes: nutrition counseling, exercise counseling, [...] provided. Assessment & Plan (05/08/2022 8:54 AM FREIGHT DISPATCHER): BMI Follow-up includes: nutrition counseling, exercise counseling and education provided. Assessment & Plan (07/01/2021 11:38 AM FREIGHT DISPATCHER): BMI Follow-up includes: nutrition counseling, exercise counseling and education provided. Assessment & Plan (06/03/2021 2:43 PM FREIGHT DISPATCHER): BMI Follow-up includes: nutrition counseling, exercise counseling [...] provided. Assessment & Plan (06/26/2020 2:59 PM FREIGHT DISPATCHER): BMI Follow-up includes: nutrition counseling, exercise counseling and education provided. Assessment & Plan (06/06/2020 2:47 PM FREIGHT DISPATCHER): BMI Follow-up includes: nutrition counseling, exercise counseling and education provided. Nasal congestion 06/06/2020 Assessment & Plan (06/06/2020 5:07 PM FREIGHT DISPATCHER): Continue fluticasone nasal spray daily. Recommended saline nasal rinses daily Complete rupture of rotator cuff 06/06/2020 Assessment & Plan (06/06/2020 5:07 PM FREIGHT DISPATCHER): Pain right shoulder with decreased range of [...] duloxetine Assessment & Plan (06/06/2020 3:30 PM FREIGHT DISPATCHER): Increased anxiety and depression due to family [...] 03/29/2019 Assessment & Plan (04/04/2019 3:32 PM FREIGHT DISPATCHER): Education for soft tissue causing most of [...] use. Assessment & Plan (04/24/2019 10:36 AM FREIGHT DISPATCHER): Patient is following up with pain management [...] 10/18/2017 Assessment & Plan (04/10/2024 2:39 PM FREIGHT DISPATCHER): -Discussed supportive measures for most likely viral [...] CDT): Continue current regimen, f/u with Dr. Escudero Assessment & Plan (01/04/2020 9:32 AM CDT): Plaquenil for DMARD. Symptoms of fatigue and achiness are not well controlled. Retirement Specialist has suggested Rituxan but she is concerned about taking IV medication. Followed by Rheumatology. Assessment & Plan (09/25/2018 12:43 PM CDT): Therapy was reviewed the patient will follow-up with Rheumatology. She has been relatively stable. Assessment & Plan (06/03/2018 8:57 AM FREIGHT DISPATCHER): Continue current therapy. Due to see Rheumatology [...] (07/29/2016): Angioedema Nonrheumatic mitral valve regurgitation 12/29/19 13 Overview (01/04/2020): Mild MR by 2012 echo [...] radiculopathy Assessment & Plan (04/04/2019 3:31 PM FREIGHT DISPATCHER): Ice not heat , Rest with periods of walking. Prescription sent to pharmacy take as directed. All risk and benefits were discussed with patient. Reviewed prior diagnostics, labs consult prior treatments medications, d/w need for physical therapy and pain management Patient verbalized understanding agrees with plan of care Pulmonary emphysema ([facility]) 06/08/2012 Overview (07/30/2016): Obstructive chronic bronchitis with exacerbation Assessment & Plan (02/17/2024 12:31 PM CDT): No evidence of acute exacerbation. Continue current management Assessment & Plan (05/08/2022 9:24 AM FREIGHT DISPATCHER): No evidence of acute exacerbation. Continue current management Assessment & Plan (12/16/2020 8:19 PM CDT): Patient will continue inhaler therapy. Assessment & Plan (09/25/2018 12:43 PM CDT): Stable. Continue current therapy. Assessment & Plan (06/03/2018 8:57 AM FREIGHT DISPATCHER): COPD is improving with treatment. COPD information handout given. Assessment & Plan (04/30/2018 1:52 PM FREIGHT DISPATCHER): Maintain adequate clear fluid intake. May use dwjh-jmz-eftperf acetaminophen or ibuprofen. Medication instructions were provided [...] myelopa Assessment & Plan (04/04/2019 3:31 PM FREIGHT DISPATCHER): Ice not heat , Rest with periods [...] today. Assessment & Plan (04/24/2019 10:38 AM FREIGHT DISPATCHER): Her thyroid has been difficult to adjust. At this time a follow-up TSH will be obtained. Assessment & Plan (04/04/2019 3:31 PM FREIGHT DISPATCHER): Continue current medical management Education to stop medication can contribute to serious consequences and subsequent health issues Labs pending Call for change vision tremors fatigue malaise dry skin or mood swing Assessment & Plan (12/15/2018 2:13 PM CDT): On replacement check labs Assessment & Plan (09/25/2018 12:42 PM CDT): On replacement a TSH will be obtained. Assessment & Plan (06/03/2018 8:58 AM FREIGHT DISPATCHER): Check tsh Assessment & Plan (02/25/2018 11:03 [...] (08/29/2020): noted on 08-07-[address] [facility] - patient denies Assessment & Plan (01/14/2021 [...] Migraines Assessment & Plan (05/08/2022 9:25 AM FREIGHT DISPATCHER): Recurrent migraines with likely medication overuse headaches [...] 09/05/2021 Assessment & Plan (05/08/2022 9:27 AM FREIGHT DISPATCHER): Continue statin, aspirin Assessment & Plan (09/05/2021 [...] Sepsis 06/03/2021 06/03/[address] 06/03/2021 3 Assessment & Plan (09/05/2021 1:35 PM CDT): [...] (01/18/2018): Added automatically from request for surgery [id number] Hypertrophy of nasal turbinates 01/18/2018 11/27/2019 Overview (01/18/2018): Added automatically from request for surgery [id number] Nasal valve stenosis 01/18/2018 023 Overview (01/18/2018): Added automatically from request for surgery [id number] Assessment & Plan (12/16/2020 8:20 PM CDT): Patient has had 2 surgeries in still cannot breathe of the left side of her nose. A referral to [facility] has been made Full body hives 09/21/2017 [...] 11/27/2019 Assessment & Plan (06/29/2017 1:41 PM FREIGHT DISPATCHER): Xray pending Ice not heat Consider orthopedic Shoulder disorder 06/29/2017 09/21/2017 Assessment & Plan (06/29/2017 1:43 PM FREIGHT DISPATCHER): Xray Has hx of injury and surgery from [facility] 2013 BMI 25.0-25.9,adult 05/14/2017 11/27/19 20 Assessment & Plan (07/12/2019 11:49 AM CDT): BMI Follow-up includes: nutrition counseling, exercise counseling and education provided. Assessment & Plan (04/24/2019 9:34 AM FREIGHT DISPATCHER): BMI Follow-up includes: nutrition counseling, exercise counseling and education provided. Assessment & Plan (04/04/2019 3:31 PM FREIGHT DISPATCHER): BMI Follow-up includes: nutrition counseling, exercise counseling [...] provided. Assessment & Plan (06/03/2018 8:40 AM FREIGHT DISPATCHER): BMI Follow-up includes: nutrition counseling, exercise counseling and education provided. Assessment & Plan (04/15/2018 9:02 AM FREIGHT DISPATCHER): BMI Follow-up includes: nutrition counseling, exercise counseling [...] provided. Assessment & Plan (05/14/2017 10:55 AM FREIGHT DISPATCHER): BMI Follow-up includes: nutrition counseling, exercise counseling and education provided. Acute bilateral low back sarah n without sciatica 05/14/2017 09/21/2017 Assessment & Plan (05/14/2017 11:17 AM FREIGHT DISPATCHER): Encourage rest. Unable to take NSAIDs due to chronic renal insufficiency. Patient may use gbif-fer-pywirrg Tylenol p.r.n.. Tizanidine prn spasms. Back exercises handout to strengthen core muscles. If no improvement after conservative treatment contact office. Rash and nonspecific skin eruption 05/14/2017 09/21/2017 Assessment & Plan (05/14/2017 11:16 AM FREIGHT DISPATCHER): Eczema: Triamcinolone ointment. Thyroid activity decreased 02/12/2017 [...] right Assessment & Plan (04/04/2019 3:31 PM FREIGHT DISPATCHER): Reviewed all diagnostics surgery referrals laboratory Answer [...] (07/30/2016): ASTHMA NOS SLE (systemic lupus erythematosus) ([facility]) 09/05/2021 Encounters Date Type Department Care Team Description 09/27/2024 Orders Only [facility] [address] [place] [address] [place] [id number] Michael Carrillo MD 2024 Orders Only [facility] [address] [place] [address] [address] [place] [address] Michael Carrillo MD Night muscle spasms from Last 3 Months Immunizations Immunization Administration Dates Next Due Hep [...] adsorbed 04/26/2008 Tdap 04/23/2015,03/05/2008 ZOSTER Recombinant 07/05/2020,02/29/2020 Surgical History Surgery Date Site/Laterality Comments ROTATOR CUFF REPAIR 04/26/2019 - 04/25/2020 Right x 2 HYSTERECTOMY 04/26/1989 - 04/25/1990 APPENDECTOMY 04/26/1974 - 04/25/1975 SINUS SURGERY 01/28/2018 x 2. STEALTH Guided Endoscopic Right Maxillary Antrostomy, Right Ethmoidectomy and Right Sphenoidotomy Dr. Yohan Benito HERNIA REPAIR 45 yrs ago SHOULDER ARTHROPLASTY 08/24/2020 - 09/23/2020 Right COLON SURGERY 2021 JOINT REPLACEMENT 2014 SMALL INTESTINE SURGERY 2021 ADENOIDECTOMY Medical History Medical History Date Comments Sjogren's syndrome Migraines Chronic sinusitis Restless leg syndrome on sinemet Anxiety and depression Hypertrophy of nasal turbinates Nasal septal deviation Fibromyalgia Discoid lupus Hypothyroidism history of [place] Emphysema of lung (HCC) noted on 08-07-[address] [facility] - patient denies History of MRSA infection of lungs pneumonia in 2016 SLE (systemic lupus erythematosus) (HCC) PONV (postoperative nausea and vomiting) Osteoarthritis of right shoulder Intestinal volvulus (HCC) 06/03/[address] ([facility]) 06/03/2021 Allergic rhinitis Asthma Stroke ([facility]) 2022 GERD (gastroesophageal reflux disease) Autoimmune disease Dx 2000 Anemia Osteoporosis Menstrual problem 1963 Cerebrovascular accident (CV A) due to occlusion of right cerebellar artery (HCC) 09/05/2021 HL (hearing loss) Chronic kidney disease Family History Medical History Relation Name Comments Heart disease Brother 1 Ayan Rheum arthritis Brother 1 Ayan Allergy (severe) Brother 2 Ayan quintin. Brother Arthritis Brother 2 Ayan quintin. Brother Asthma Brother 2 Ayan quintin. Brother Rashes / Skin problems Brother 2 Ayan bridges. Bro ther Arthritis Father Juanito bridges Depression Father Juanito bridges Fibromyalgia Father Juanito bridges Hearing loss Father Juanito bridges Heart disease Father Juanito bridges Heart failure Father Juanito bridges Lupus Father Juanito bridges Migraines Father Juanito bridges Rashes / Skin problems Father Juanito bridges Rheum arthritis Father Juanito bridges Thyroid disease Father Juanito bridges Diabetes Maternal Grandfather Benjamin song Vision loss Maternal Grandfather Benjamin song Allergy (severe) Mother Huyen bridges Arthritis Mother Huyen bridges Asthma Mother Huyen bridges Breast cancer Mother Huyen bridges Cancer Mother Huyen bridges Depression Mother Huyen bridges Diabetes Mother Huyen bridges Headache Mother Huyen bridges Migraines Mother Huyen bridges Miscarriages / Stillbirths Mother Huyen franciscoo n Rashes / Skin problems Mother Huyen bridges Cancer Sister 1 Delores licavoli lung and bra in Depression Sister 1 Delores licavoli Diabetes Sister 1 Delores licavoli Obesity Sister 1 Delores licavoli Thyroid disease Sister 1 Delores licavoli Fibromyalgia Sister 2 Diane Migraines Sister 2 Diane Osteoarthritis Sister 2 Diane Rheum arthritis Sister 2 Diane Arthritis Sister 3 Diane quintin Depression Sister 3 Diane bridges Thyroid disease Sister 3 Diane bridges Vision loss Sister 3 Diane bridges Thyroid disease Son 1 Graves' disease Son 2 Edcamacho jud Hearing loss Son 2 Edcamacho jud Relation Name Status Comments Brother 1 Ayan (Age 71) Brother 2 Ayan bridges. Brother Father Juanito bridges Maternal Grandfather Benjamin song Mother Huyen bridges Sister 1 Delores licavoli Alive Sister 2 Diane (Age 62) Sister 3 Diane quintin Son 1 Alive Son 2 Eliceo jud Alive Social History Tobacco Use Types Packs/Day Years [...] week 06/10/2021 How often do you attend [facility] or hinduism services? 1 to 4 times per year 06/10/2021 Do you belong to any clubs o r organizations such as roman catholic groups, unions, fraternal or athletic groups, or [...] place to sleep or slept in a penitentiary (including now)? No 06/10/2021 Comments No Sex and Gender Information Value Date Recorded Sex Assigned at Not on file Legal Sex Female 10:27 PM FREIGHT DISPATCHER Gender Identity Female 12/13/2018 8:50 AM CDT Sexual Orientation Straight 12/13/2018 8: 50 AM CDT Occupation Industry Job Start Date Job End Date Retired Not on file Not on file Not on file Obstetrics History Last Filed Vital Signs Vital Sign Reading Time Taken Comments Blood Pressure 100/71 06/05/2024 10:45 AM FREIGHT DISPATCHER Pulse 75 06/05/2024 10:45 AM FREIGHT DISPATCHER Temperature 36.7 C (98.1 F) 06/05/2024 10:45 AM FREIGHT DISPATCHER Respiratory Rate 16 05/24/2023 4:03 PM FREIGHT DISPATCHER Oxygen Saturation 98% 04/10/2024 1:59 PM FREIGHT DISPATCHER Inhaled Oxygen Concentration - - Weight 61 kg (134 lb 6.4 oz) 06/05/2024 10:45 AM FREIGHT DISPATCHER Height 161.3 cm (5' 3.5) 06/05/2024 10:45 AM CS T Body Mass Index 23.43 06/05/2024 10:45 AM FREIGHT DISPATCHER Plan of Treatment Health Maintenance Due Date Last Done Comments Hepatitis B Screening 1972 Lung Cancer Screening 2004 Covid-19 Vaccine (3 - Modern a risk series) 10/01/2020 09/03/2020, 08/03/2020 Osteoporosis Screening-Bone Density Scan 08/28/2022 08/28/2020 Influenza Vaccine (#1) 2024 , 02/17/2024, 01/18/2023, Additional history exists Well Visit 65+ 02/16/2025 02/17/2024, 01/24, 06/26/2020, Additional history exists Breast Cancer Screening-Mammogram 03/03/2025 03/03/2024, 07/13/2022, 08/28/2020, Additional history exists Depression Screening 04/10/2025 04/10/2024, 02/17/2024, 12/30/2023, Additional history exists Fall Risk Assessment 04/10/2025 04/10/2024, 02/17/2024, 12/30/2023, Additional history exists DTaP/Tdap/Td Vaccine (4 - Td or Tdap) 04/23/2025 04/23/2015, 04/26/2008, 03/05/2008 Colon Cancer Screening-Colonoscopy 09/24/2026 09/24/2021, 05/20/2014 Hepatitis C Screening Completed 09/07/2018 Zoster Vaccine Completed 07/05/2020, 02/29/2020 Colon Cancer Screening-CT Colonography Discontinued 09/24/2021, 05/20/2014 Colon Cancer Screening-DNA Stool Discontinued 09/25/19 22, 05/20/2014 Colon Cancer Screening-FIT Discontinued 09/24/2021, Colon Cancer Screening-Sigmoidoscopy Discontinued 09/24/2021, 05/20/2014 Pneumococcal vaccine 65+ Completed 023, 02/19/2021, 09/01/2017, Additional history exists Goals Goal Patient Goal Type Associated Problems Recent Progress Patient-Stated? Author VISHAL General Goal - Patient is knowledgeable about condition when worsening and how to respond ACO Care Management On track(2021 11:22 AM CDT) No Alcon Guardado, MANDEEP Note: Problem: Knowledge deficit related to signs [...] Plan Chronic Care Management No Mague Oconnor, MANDEEP Note: Problem: Chronic Pain Goals: 1. Minimize [...] home safety. Medical Devices Implanted Type Area Senior Nuclear Medicine Technologist Device Identifier Shelf Expiration Date Model / Serial / Lot Implantech Alliedsil 3x2in Nonreinforced Permanent Implantable Thk.04in - [id number] Implanted:Qty: 1 on 03/25/2021 by Tristan Solorio MD at [facility] Other - see comments N/A: Nose Implantech 09/11/2025 / / [id number] Implantech Alliedsil 3x2in 1 Short Term Implantable Thk.03in Sheeting - [id number] Implanted:Qty: 1 on 01/28/2018 by Yohan Benito MD at [facility] Bilateral : Nose Implantech [id number] 07/22/2022 / / [id number] Intersect Ent [id number] Propel 4mm 16mm Steroid Release Zip Tie 370 Mcg Mini Implant - [id number] Implanted:Qty: 1 on 01/28/2018 by Yohan Benito MD at [facility] Left: Nose Intersect Ent 07/03/2019 [id number] / / [id number] Intersect Ent [id number] Propel 4mm 16mm Steroid Release Zip Tie 370 Mcg Mini Implant - [id number] Implanted:Qty: 1 on 01/28/2018 by Yohan Benito MD at [facility] Right: Nose Intersect Ent 07/03/2019 [id number] / / [id number] Latera Luverne Implanted:Qty: 1 on 01/28/2018 by Yohan Benito MD at [facility] Bilateral : Nose Spirometrics Medical Equipment 10/12/2018 / [id number] Description:Item documented as one time implant on implant screen by RN. Item listed in EPIC under supply screen, so final inspection supervisor entered on supply screen for charging, and left implant screen items as non-chargeable Health Warrior [id number] Stem Perform Sz 2 Plus Humeral Long - [id number] - [id number] Implanted:Qty: 1 on 09/11/2020 by Omari Vera DO at [facility] Right: Shoulder [employer]orHub Inc [id number] 05/23/2025 [id number] / [id number] / Perform Humeral System Retentive Reversed Insert Implanted:Qty: 1 on 09/11/2020 by Omari Vera DO at [facility] Right: Shoulder Tornier Inc 01/17/2025 [id number] / [id number] / Description:Size 1/2 Diameter 36mm Thickness +0mm REF [id number] mediaBunkerer Inc [id number] Aequalis 2.5mm 200mm Shoulder Glenoid Pin Alignment Sterile - [id number] - [id number] Implanted:Qty: 1 on 09/11/2020 by Omari Vera DO at [facility] Right: Shoulder Health Warrior [id number] 05/09/2025 [id number] / [id number] / Description:REF: [id number] WhiteCloud Analyticsnier Future Simple [id number] Aequalis 25mm Shoulder Baseplate Glenoid Lewis - [id number] - [id number] Implanted:Qty: 1 on 09/11/2020 by Omari Vera DO at [facility] Right: Shoulder Health Warrior [id number] 04/21/2023 [id number] / [id number] / Health Warrior [id number] 36mm Reverse Ii Center Shoulder Sphere Glenoid Titanium - [id number] - [id number] Implanted:Qty: 1 on 09/11/2020 by Omari Vera DO at [facility] Right: Shoulder Health Warrior [id number] 08/14/2025 [id number] / [id number] / Tornier Future Simple [id number] Aequalis Reversed 4.5mm 18mm Compression Glenoid Screw Baseplate - [id number] Implanted:Qty: 2 on 09/11/2020 by Omari Vera DO at [facility] Right: Shoulder [employer]or[employer] Inc [id number] / / Tornier Inc [id number] Aequalis 4.5mm 23mm Lock Multidirectional Self Tap Shoulder Screw Latex Free - [id number] Implanted:Qty: 2 on 09/11/2020 by Omari Vera DO at [facility] Right: Shoulder Orlebar Brown Technology Inc [id number] / / Porex Surgical Inc 7210 Medpor 50x38x.85mm Sheet Smooth Transition Craniomaxillofacial Latex Free - [id number] Implanted:Qty: 1 on 03/25/2021 by Tristan Solorio MD at [facility] N/A: Nose Porex Surgical Inc 08/11/2030 [id number] / / [id number] Explanted Type Area Senior Nuclear Medicine Technologist Device Identifier Shelf Expiration Date Model / Serial / Lot Health Warrior [id number] Guide Pin Perform 3.0 X 100mm - [id number] Explanted:Qty: 1 on 09/11/2020 at [facility] Health Warrior [id number] / / Description:: Item documente d as one time supply on supply screen by RN. Item listed in EPIC under implant screen, so final inspection supervisor entered on implant screen as implanted/explanted for charging, and left supply screen items as non-chargeable Procedures Procedure Name Priority Date/Time Associated Diagnosis Comments SCREENING MAMMOGRAM BILATERAL W ENRIQUE Schedule Routine, Read Routine (OP Routine) 03/03/2024 2:27 PM FREIGHT DISPATCHER Screening mammogram, encounter for COLONOSCOPY Routine 09/24/2021 DEXA AXIAL SKELETON BONE DENSITY 1 OR MORE SITES Schedule Routine, Read Routine (OP Routine) 08/28/2020 1:04 PM CDT Postmenopausal HEPATITIS C ANTIBODY Routine 09/07/2018 11:32 AM CDT Need for hepatitis C screening test from Last 3 Months or Most Recently Relevant to Health Maintenance Results * Screening Mammogram Bilateral W Enrique (03/03/2024 2:27 PM FREIGHT DISPATCHER) Anatomical Region Laterality Modality Breast Bilateral Mammography Narrative 03/06/2024 2:52 PM FREIGHT DISPATCHER Mammogram Technique: Bilateral Digital Breast Tomosynthesis, Bilateral C-view 2D Screening mammogram. Views obtained: bilateral craniocaudal and bilateral mediolateral oblique. Computer Aided Detection was performed. Mammogram Findings: The present examination has been compared to prior imaging studies performed at [facility] on 12/14/2018, 08/28/2020 and 07/13/2022. The [...] compared to prior imaging studies performed at [facility] on 12/14/2018,08/28/2020 and 07/13/2022. The breasts [...] it. Electronically signed by: Clayton Stark M.D. us Michael Ventura MD IMG DXA PROCEDURES Final Resul t * Hepatitis [...] a test for HCV RNA (test code 75482) is suggested. For additional information please refer to http://education.Uptake/faq/EAD79w9 (This link is being provided for informational/ educational purposes only.) Blood specimen (specimen) 09/07/2018 11:32 AM CDT 09/08/2018 5:44 AM CDT Narrative Resulting Agency Comment Performing Organization Information: Site ID: [id number] Name: [facility] Address: [id number] [place], [place] [address]ZH[place] [address] Director: Yosvany Lindsay D.O., MPH us Michael Ventura MD LAB MICROBIOLOGY - GENERAL ORD ERABLES Final Result [facility] from Last 3 Months or Most Recently Relevant to Health Maintenance Insurance [facility] MEDICARE ADVANTAGE UHC MEDICARE ADVANTAGE UHC MEDICARE ADVANTAGE Advance Directives For more information, please contact: [phone] * Full Code (Latest Code Status on File) Date Activated Date Inactivated Comments 09/11/2020 4:46 PM 09/13/2020 4:56 PM * Full Code Date Activated Date Inactivated Comments 01/28/2018 11:49 AM 01/28/2018 2:35 PM Care Teams Agronomy Internship Relationship Specialty Start Date End Date Michael Carrillo MD PCP - General Internal Medicine 10/02/21 Omari Vera DO Consulting Physician Orthopedic Surgery 09/12/20
[2024-11-03 02:55] LABS: Hematocrit 37.1 % (35.0-42.0); Hemoglobin 11.8 g/dL (11.7-13.8); Immature Granulocyte Percent A 0.5 % (0.0-0.0); Lymphocytes Absolute Auto 1.46 K/mm3 (1.10-4.50); Mean Corpuscular HGB Conc 31.8 g/dL (32-36); Mean Corpuscular Hemoglobin 30.7 pg (27.0-31.0); Mean Corpuscular Volume 96.6 fL (78.0-102.0); Nucleated Red Blood Cells Absolute Auto 0.00 K/mm3 (0.00-0.00); Nucleated Red Blood Cells Perc 0.0 % (0-0.0); Platelet Count Result 276 K/mm3 (150-420); Red Blood Count 3.84 M/mm3 (4.20-5.40); White Blood Count 5.6 K/mm3 (4.8-10.8)
[2024-11-03] MEDS: MORPHINE SULFATE (*CRX) 2 MG/ML INJ IV PUSH (02:57)
[2024-11-03] MEDS: SODIUM CHLORIDE 0.9% IV 500 ML 999 ML IV CONT (02:58)
[2024-11-03 03:14] LABS: Albumin Level 4.2 g/dL (3.5-5.1); Alkaline Phosphatase 73 U/L (38-126); Anion Gap 7 mmol/L (4-12); Aspartate Amino Transferase 31 U/L (14-36); Bilirubin,Total 0.5 mg/dL (0.2-1.3); Blood Urea Nitrogen 15 mg/dL (7-17); Calcium 9.0 mg/dL (8.4-10.2); Carbon Dioxide 22 mmol/L (22-30); Chloride 112 mmol/L (98-107); Estimated CRCL calculation 24 ml/min; Estimated Glomerular Filt Rate 31; Glucose 89 mg/dL (65-110); Osmolality Calculated 291 mOsm/kg (285-295); Potassium 3.8 mmol/L (3.4-5.0); Sodium 141 mmol/L (137-145); Total Protein 7.5 g/dL (6.3-8.2)
[2024-11-03 03:15] LABS: Alanine Aminotransferase < 6 U/L (6-35)
== END 2024-11-03 03:56 | disposition home or self-care (01) ==
PROVIDERS: Emergency Provider Emergency Medicine
DX: G44.89 Other headache syndrome (principal); G20.A1 Parkinson's disease without dyskinesia, without mention of fluctuations; Z86.73 Personal history of transient ischemic attack (TIA), and cerebral infarction without residual deficits
CPT/HCPCS: 36415; 70450; 80053; 82948; 85025; 96374; 99284; J2270; J7040